=== PATIENT | female | born 1965 | race Caucasian/White ===

== ENCOUNTER → 2020-01-11 10:31 | Outpatient (CLI) | payer BC, SELFPAY ==
--- NOTE | 2020-01-11 10:50 | RAD_ITS ---
STUDY: X-RAY CHEST REASON FOR EXAM: Female, 54 years old. inflammatory polyarthropathy, Hx of breast CA, bilateral mastectomy TECHNIQUE: PA and lateral views of the chest. COMPARISON: None. FINDINGS: Status post left axillary lymph node dissection. The lungs are clear and expanded. There is no demonstrated pleural abnormality. Normal size heart. Normal mediastinum and raul. Normal visualized pulmonary arteries. Normal visualized aortic arch and descending thoracic aorta. Normal visualized thoracic spine. Normal visualized ribs, clavicles, and shoulders. There is no demonstrated abnormality of the visualized soft tissue structures of the upper abdomen. RAD/Chest PA and Lateral IMPRESSION: Normal x-ray examination of the chest. Electronically Signed: Ilia Shukla MD at 7:44 EDT Tel , Service support ,
[2020-01-11 11:49] LABS: EXAGEN MAILED SPECIMEN
[2020-01-11 12:52] LABS: Partial Thromboplast Time 23.4 Seconds (24.1-36.2); Prothrombin Time (Protime)PT. 12.2 SECONDS (11.7-14.9)
[2020-01-11 12:56] LABS: Color, Urine Yellow (Yellow); Glucose, Dipstick Normal (Normal); Ketone-Dipstick 5 mg/dl (Negative); Leukocyte Esterase-Dipstick 100 /ul (Negative); Nitrite-Dipstick Negative (Negative); Occult Blood-Urine 250 /ul (Negative); Protein-Dipstick 30 mg/dl (Negative); Specific Gravity, Urine 1.015 (1.002-1.030); Urine Bilirubin Dipstick Negative (Negative); Urine Clarity Sl. Cloudy (Clear); Urine Urobilinogen Normal (Normal); Urine pH 6.5 (5.0 - 8.0)
[2020-01-11 13:03] LABS: Absolute Lymphocyte Count 2.28 X10^3/uL (0.83-4.51); Absolute Neutrophil Count 5.7 X10^3/uL (2.0-7.7); Basophil# 0.07 X10^3/uL; Basophil% 0.8 % (0-1); Eosinophil# 0.15 X10^3/uL; Eosinophils% 1.7 % (0-5); Hematocrit 43.6 % (37-47); Hemoglobin 13.7 g/dL (12.0-15.0); Lymphocyte # 2.28 X10^3/ul (4.0); Lymphocyte % 25.6 % (19-41); Mean Corp Hgb Conc 31.4 g/dL (32-36); Mean Corpuscular Hgb 31.4 pg (27.0-32.0); Mean Corpuscular Volume 99.8 fL (81-99); Mean Platelet Vol. 10.3 fl (6.2-12.0); Monocyte# 0.65 X10^3/uL; Monocyte% 7.3 % (0-10); NRBC Flagged by Analyzer 0 % (0-5); Neutrophil # 5.73 X10^3/uL (2.7-7.7); Neutrophil % 64.3 % (47-70); Platelet Count 277 K/mm3 (150-450); RBC Distribution Width CV 12.8 % (11.6-14.6); RBC Distribution Width SD 46.5 fl (35.1-43.9); Red Blood Count 4.37 M/mm3 (4.2-5.4); White Blood Count 8.9 K/mm3 (4.4-11.0)
[2020-01-11 13:07] LABS: Protein, Urine (Random) 43.3 mg/dL (<11.9); Protein:Creat Ratio 341 mg/g CRE (0-200)
[2020-01-11 13:20] LABS: Erythrocyte Sedimentation Rate 7 mm/hr (0-30)
[2020-01-11 13:23] LABS: ALB/GLOB Ratio 1.1 RATIO (0.9-2.4); AST(SGOT) 15 U/L (15-37); Alanine Aminotransfer ALT/SGPT 23 U/L (13-56); Alkaline Phosphatase 52 U/L (45-117); Anion Gap 8 (5-15); BUN 15 mg/dL (7-18); BUN/Creat Ratio 25.1 RATIO (10-20); CPK Total, Creatine Kinase 27 U/L (26-192); CRP < 2.90 mg/L (0.0-3.0); Calcium,Total 9.1 mg/dL (8.5-10.1); Chloride 101 mmol/L (98-107); EST Glomerular Filtration Rate 111 mL/min (>60); Est Glom Filt Rate - Afr Amer 134 mL/min (>60); Globulin 3.7 g/dL (2.2-4.2); Glucose 78 mg/dL (74-106); Potassium 2.9 mmol/L (3.5-5.1); Protein, Total 7.7 g/dL (6.4-8.2); Sodium Level 139 mmol/L (136-145)
[2020-01-11 13:45] LABS: Hepatitis B Surface Antibody Non-Reactive; Hepatitis B Surface Antigen Non-Reactive (Nonreactive); Hepatitis C Antibody Non-Reactive (Nonreactive)
[2020-01-15 00:36] LABS: Thrombin Time 19.5 sec (0.0-23.0)
[2020-01-15 20:07] LABS: Dilute Prothrombin Time (dPT) 35.5 sec (0.0-55.0); Hexagonal Phase Phospholipid 0 sec (0-11); PTT-LA 30.2 sec (0.0-51.9); QNTFERON TB Mitogen Value > 10.00 IU/mL (.); QNTFERON TB Nil Value 0.23 IU/mL (.); QNTFERON TB1+ Ag Value 0.37 IU/mL (.); Thrombin Time 19.7 sec (0.0-23.0); dPT Confirm Ratio 0.98 Ratio (0.00-1.40)
[2020-01-15 20:31] LABS: Hepatitis B Core AB IgM Negative (Negative); Interpretation Comment: (.); QNTIFERON TB Positive Criteria Negative (Negative)
== END ==
PROVIDERS: Referring Provider Internal Medicine Rheumatology; Visit Provider Internal Medicine Rheumatology
DX: M06.4 Inflammatory polyarthropathy (principal); R76.8 Other specified abnormal immunological findings in serum; M79.7 Fibromyalgia; K76.0 Fatty (change of) liver, not elsewhere classified; K58.9 Irritable bowel syndrome, unspecified; Z85.3 Personal history of malignant neoplasm of breast
CPT/HCPCS: 36415; 71046; 80053; 81002; 82085; 82550; 82570; 84156; 85025; 85598; 85610; 85652; 85670; 85730; 86140; 86480; 86705; 86706; 86803; 87340

== ENCOUNTER 2020-01-12 10:12 | Emergency (ER) | payer BC, SELFPAY ==
[2020-01-12 10:13] VITALS: BP 100/53; PULSE 81; RESP 16; TEMP 36.2; O2SAT 98; BMI 27.6
--- NOTE | 2020-01-12 10:22 | EKG12_ITS ---
Test Reason : ABNL LABS Blood Pressure : / mmHG Vent. Rate : 074 BPM Atrial Rate : 074 BPM P-R Int : 162 ms QRS Dur : 080 ms QT Int : 424 ms P-R-T Axes : 050 038 081 degrees QTc Int : 470 ms Normal sinus rhythm Possible Left atrial enlargement Nonspecific ST and T wave abnormality Abnormal ECG Confirmed by GILMAR PETTY, BINTA ([id number]), editor in chief newspaper JERALD MAYFIELD ([id number]) on 01/14/2020 1:05:22 PM Referred By: EDITH Confirmed By:BINTA SCHAFER MD
[2020-01-12 11:01] LABS: Anion Gap 5 (5-15); BUN 17 mg/dL (7-18); BUN/Creat Ratio 26.8 RATIO (10-20); Calcium,Total 8.8 mg/dL (8.5-10.1); Chloride 107 mmol/L (98-107); Creatinine, Serum 0.63 mg/dL (0.55-1.02); EST Glomerular Filtration Rate 104 mL/min (>60); Est Glom Filt Rate - Afr Amer 125 mL/min (>60); Estimated Creatinine Clearance 77.03 ml/min; Glucose 90 mg/dL (74-106); Magnesium 1.9 mg/dL (1.6-2.6); Potassium 3.3 mmol/L (3.5-5.1); Sodium Level 142 mmol/L (136-145)
--- NOTE | 2020-01-12 11:22 | ED.DCSUM_ITS ---
- ER Visit Summary Date of Service: 01/12/20 Chief Complaint: Low potassium History of Present Illness: The patient is a [address] South and Dr. Chance. Patient reports that she had blood work drawn yesterday and was told to leave and come to the emerge department because her potassium was low. States that her prior to coming in that she a lot of high potassium foods. Physical Examination: Vitals: Stable. Afebrile. General: Well-nourished and well-developed. Head: Normocephalic atraumatic. Neck: Supple, no lymphadenopathy. No JVD. Nontender. Cardiovascular: Regular rate and rhythm. No murmurs. Respiratory: No respiratory distress. Clear to auscultation bilaterally. Abdominal: Soft, nontender, nondistended, normal bowel sounds. No guarding, rebound, or peritoneal signs. Back: Nontender. Extremities: Nontender, no edema. Skin: Normal color, no rash. Neurologic: Alert and oriented ?3. Cranial nerves II through XII are intact. Normal strength and sensation. Psych: Normal affect. Test Results: Chem-7 shows a potassium of 3.3. Her potassium was 2.9 yesterday. Magnesium is 1.9. EKG is sinus at [address] changes. Her QTC is 470. Emergency Department Course and Treatment: Patient is resting comfortably. Treatment Plan: I had a prolonged discussion with the patient about the hypokalemia. She is on hydrochlorothiazide, but she reports that she has been on this for quite some time is never had problems with this before. She would prefer to do this with diet. However, she will be given a prescription for potassium. Instructed to follow-up with her primary care physician this week for repeat potassium and discussion about whether or not to continue the hydrochlorothiazide. Return to the emergency department for any worsening symptoms. Disposition: To home in improved and stable condition. Impression: 1. Hypokalemia. This note was generated with [employer]ation software. It may contain incorrect words, spelling, and punctuation that were not noted in review of the chart prior to signing ED Disposition - Plan for ED Patient: Instructions: ED Potassium-Rich Foods Prescriptions: Potassium Chloride [K-Dur] 40 meq PO DAILY #10 tablet Referrals: Yanet Chance MD [STAFF PHYSICIAN] - 1 Week
== END 2020-01-12 11:45 | disposition home or self-care (01) ==
LOC: ED 11:32
PROVIDERS: Emergency Provider Emergency Medicine; PCP Internal Medicine
DX: E87.6 Hypokalemia (principal); I10 Essential (primary) hypertension; E78.00 Pure hypercholesterolemia, unspecified; M79.7 Fibromyalgia; M32.9 Systemic lupus erythematosus, unspecified
CPT/HCPCS: 80048; 83735; 93005; 99282; A4216

== ENCOUNTER → 2020-05-19 15:17 | Outpatient (CLI) | payer BC, SELFPAY ==
[2020-05-19 18:35] LABS: Absolute Lymphocyte Count 1.75 X10^3/uL (0.83-4.51); Absolute Neutrophil Count 2.5 X10^3/uL (2.0-7.7); Basophil# 0.05 X10^3/uL; Eosinophil# 0.12 X10^3/uL; Eosinophils% 2.3 % (0-5); Hematocrit 39.2 % (37-47); Hemoglobin 12.2 g/dL (12.0-15.0); Lymphocyte # 1.75 X10^3/ul (4.0); Lymphocyte % 33.5 % (19-41); Mean Corp Hgb Conc 31.1 g/dL (32-36); Mean Corpuscular Hgb 28.5 pg (27.0-32.0); Mean Corpuscular Volume 91.6 fL (81-99); Mean Platelet Vol. 11.7 fl (6.2-12.0); Monocyte# 0.79 X10^3/uL; Monocyte% 15.1 % (0-10); NRBC Flagged by Analyzer 0 % (0-5); Neutrophil # 2.51 X10^3/uL (2.7-7.7); Neutrophil % 47.9 % (47-70); Platelet Count 273 K/mm3 (150-450); RBC Distribution Width CV 12.4 % (11.6-14.6); RBC Distribution Width SD 41.4 fl (35.1-43.9); Red Blood Count 4.28 M/mm3 (4.2-5.4); White Blood Count 5.2 K/mm3 (4.4-11.0)
[2020-05-19 18:46] LABS: ALB/GLOB Ratio 1.1 RATIO (0.9-2.4); AST(SGOT) 25 U/L (15-37); Alanine Aminotransfer ALT/SGPT 31 U/L (13-56); Alkaline Phosphatase 54 U/L (45-117); Anion Gap 7 (5-15); BUN 10 mg/dL (7-18); Calcium,Total 9.5 mg/dL (8.5-10.1); Chloride 105 mmol/L (98-107); Creatinine, Serum 0.71 mg/dL (0.55-1.02); EST Glomerular Filtration Rate 90 mL/min (>60); Est Glom Filt Rate - Afr Amer 109 mL/min (>60); Globulin 3.6 g/dL (2.2-4.2); Glucose 77 mg/dL (74-106); Potassium 3.1 mmol/L (3.5-5.1); Protein, Total 7.6 g/dL (6.4-8.2); Sodium Level 142 mmol/L (136-145)
[2020-05-19 18:52] LABS: Color, Urine Yellow (Yellow); Glucose, Dipstick Normal (Normal); Ketone-Dipstick Negative (Negative); Leukocyte Esterase-Dipstick Negative /ul (Negative); Nitrite-Dipstick Negative (Negative); Occult Blood-Urine 10 /ul (Negative); Protein-Dipstick Negative (Negative); Specific Gravity, Urine 1.005 (1.002-1.030); Urine Bilirubin Dipstick Negative (Negative); Urine Clarity Clear (Clear); Urine Urobilinogen Normal (Normal)
[2020-05-19 19:03] LABS: Creatinine, Urine (random) < 13.00 mg/dL (NO RANGE EST.); Protein, Urine (Random) < 6.0 mg/dL (<11.9)
== END ==
PROVIDERS: PCP Internal Medicine; Referring Provider Internal Medicine Rheumatology; Visit Provider Internal Medicine Rheumatology
DX: M06.4 Inflammatory polyarthropathy (principal); Z79.899 Other long term (current) drug therapy; R76.8 Other specified abnormal immunological findings in serum; M79.7 Fibromyalgia; K76.0 Fatty (change of) liver, not elsewhere classified; K58.9 Irritable bowel syndrome, unspecified; Z85.3 Personal history of malignant neoplasm of breast
CPT/HCPCS: 36415; 80053; 81002; 82570; 84156; 85025

== ENCOUNTER 2020-09-16 12:52 | Emergency (ER) | payer BC, SELFPAY ==
[2020-09-16] VITALS (7 sets, daily range): BP systolic 126–174; BP diastolic 70–118; PULSE 71–85; RESP 11–16; TEMP 36.9; O2SAT 98–100; BMI 24.9
[2020-09-16] MEDS: 0.9% Normal Saline 1,000 ML 999 ML IV (12:54)
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
[2020-09-16 13:10] LABS: Absolute Lymphocyte Count 1.33 X10^3/uL (0.83-4.51); Absolute Neutrophil Count 2.4 X10^3/uL (2.0-7.7); Basophil# 0.02 X10^3/uL; Basophil% 0.5 % (0-1); Eosinophil# 0.06 X10^3/uL; Eosinophils% 1.4 % (0-5); Hematocrit 38.2 % (37-47); Hemoglobin 12.4 g/dL (12.0-15.0); Lymphocyte # 1.33 X10^3/ul (4.0); Mean Corp Hgb Conc 32.5 g/dL (32-36); Mean Corpuscular Hgb 29.5 pg (27.0-32.0); Mean Platelet Vol. 9.8 fl (6.2-12.0); Monocyte# 0.56 X10^3/uL; Monocyte% 12.6 % (0-10); NRBC Flagged by Analyzer 0 % (0-5); Neutrophil # 2.44 X10^3/uL (2.7-7.7); Platelet Count 247 K/mm3 (150-450); RBC Distribution Width CV 12.9 % (11.6-14.6); RBC Distribution Width SD 42.5 fl (35.1-43.9); White Blood Count 4.4 K/mm3 (4.4-11.0)
[2020-09-16] MEDS: Morphine 4 MG/ML Syringe IV (13:15)
[2020-09-16] MEDS: Ondansetron 4 MG/2 ML Vial IV (13:15)
[2020-09-16 13:21] LABS: Bedside Glucose 146 mg/dL (70-110)
[2020-09-16 13:23] LABS: Anion Gap 7 (5-15); BUN 14 mg/dL (7-18); BUN/Creat Ratio 18.3 RATIO (10-20); Calcium,Total 9.5 mg/dL (8.5-10.1); Chloride 105 mmol/L (98-107); Creatinine, Serum 0.77 mg/dL (0.55-1.02); EST Glomerular Filtration Rate 83 mL/min (>60); Est Glom Filt Rate - Afr Amer 100 mL/min (>60); Estimated Creatinine Clearance 80.28 ml/min; Glucose 114 mg/dL (74-106); Potassium 3.7 mmol/L (3.5-5.1); Sodium Level 140 mmol/L (136-145)
== END 2020-09-16 15:24 | disposition home or self-care (01) ==
LOC: ED 14:21
PROVIDERS: Emergency Provider Emergency Medicine; PCP Internal Medicine
DX: S06.0X1A Concussion with loss of consciousness of 30 minutes or less, initial encounter (principal); S16.1XXA Strain of muscle, fascia and tendon at neck level, initial encounter; S20.219A Contusion of unspecified front wall of thorax, initial encounter; S30.1XXA Contusion of abdominal wall, initial encounter; V43.62XA Car passenger injured in collision with other type car in traffic accident, initial encounter; Y92.410 Unspecified street and highway as the place of occurrence of the external cause; M32.9 Systemic lupus erythematosus, unspecified; K76.0 Fatty (change of) liver, not elsewhere classified; K57.30 Diverticulosis of large intestine without perforation or abscess without bleeding; K44.9 Diaphragmatic hernia without obstruction or gangrene; Z90.49 Acquired absence of other specified parts of digestive tract; Z87.891 Personal history of nicotine dependence
CPT/HCPCS: 70450; 72125; 74177; 80048; 82962; 85025; 93005; 96361; 96374; 96375; 99285; J7030; Q9967; A4216; J2405

== ENCOUNTER → 2020-11-10 12:21 | Outpatient (CLI) | payer BC, SELFPAY ==
[2020-09-16 12:54] VITALS: BMI 24.9
[2020-11-10 15:08] LABS: Color, Urine Amber (Yellow); Glucose, Dipstick Normal (Normal); Ketone-Dipstick Negative (Negative); Leukocyte Esterase-Dipstick 25 /ul (Negative); Nitrite-Dipstick Negative (Negative); Occult Blood-Urine 150 /ul (Negative); Protein-Dipstick Negative (Negative); Specific Gravity, Urine 1.015 (1.002-1.030); Urine Bilirubin Dipstick Negative (Negative); Urine Clarity Sl. Cloudy (Clear); Urine Urobilinogen Normal (Normal)
[2020-11-10 15:09] LABS: Absolute Lymphocyte Count 1.24 X10^3/uL (0.83-4.51); Absolute Neutrophil Count 4.7 X10^3/uL (2.0-7.7); Basophil# 0.03 X10^3/uL; Basophil% 0.4 % (0-1); Eosinophil# 0.07 X10^3/uL; Hematocrit 36.2 % (37-47); Hemoglobin 11.5 g/dL (12.0-15.0); Lymphocyte # 1.24 X10^3/ul (0.83-4.51); Lymphocyte % 18.4 % (19-41); Mean Corp Hgb Conc 31.8 g/dL (32-36); Mean Corpuscular Hgb 28.6 pg (27.0-32.0); Monocyte# 0.71 X10^3/uL; Monocyte% 10.5 % (0-10); NRBC Flagged by Analyzer 0 % (0-5); Neutrophil # 4.67 X10^3/uL (2.7-7.7); Neutrophil % 69.4 % (47-70); Platelet Count 286 K/mm3 (150-450); RBC Distribution Width CV 12.5 % (11.6-14.6); RBC Distribution Width SD 41.1 fl (35.1-43.9); Red Blood Count 4.02 M/mm3 (4.2-5.4); White Blood Count 6.7 K/mm3 (4.4-11.0)
[2020-11-10 15:34] LABS: Protein, Urine (Random) < 6.0 mg/dL (<11.9)
[2020-11-10 15:39] LABS: ALB/GLOB Ratio 0.9 RATIO (0.9-2.4); AST(SGOT) 11 U/L (15-37); Alanine Aminotransfer ALT/SGPT 16 U/L (13-56); Albumin, Serum 3.6 g/dL (3.2-5.0); Alkaline Phosphatase 58 U/L (45-117); Anion Gap 4 (5-15); BUN 14 mg/dL (7-18); BUN/Creat Ratio 19.8 RATIO (10-20); Calcium,Total 9.3 mg/dL (8.5-10.1); Chloride 106 mmol/L (98-107); Creatinine, Serum 0.71 mg/dL (0.55-1.02); EST Glomerular Filtration Rate 91 mL/min (>60); Est Glom Filt Rate - Afr Amer 110 mL/min (>60); Globulin 3.9 g/dL (2.2-4.2); Glucose 120 mg/dL (74-106); Potassium 3.7 mmol/L (3.5-5.1); Protein, Total 7.5 g/dL (6.4-8.2); Sodium Level 140 mmol/L (136-145)
== END ==
PROVIDERS: PCP Internal Medicine; Referring Provider Internal Medicine Rheumatology; Visit Provider Internal Medicine Rheumatology
DX: M06.4 Inflammatory polyarthropathy (principal); R76.8 Other specified abnormal immunological findings in serum; M79.7 Fibromyalgia; K76.0 Fatty (change of) liver, not elsewhere classified; K58.9 Irritable bowel syndrome, unspecified; Z79.899 Other long term (current) drug therapy; Z85.3 Personal history of malignant neoplasm of breast
CPT/HCPCS: 36415; 80053; 81002; 82570; 84156; 85025

== ENCOUNTER → 2020-11-28 17:43 | Emergency (ER) | payer BC, SELFPAY ==
[2020-09-16 12:54] VITALS: BMI 24.9
[2020-11-28 17:43] VITALS: BP 131/87; PULSE 78; RESP 16; TEMP 35.8; O2SAT 98; BMI 26.9
[2020-11-28 17:45] VITALS: BP 131/87; PULSE 78; RESP 16; TEMP 35.8; O2SAT 98
[2020-11-28 19:48] LABS: Bacteria 0 SEEN /hpf (None Seen); Mucous, Urine 0 SEEN /hpf (<or=2+)
[2020-11-28 19:51] LABS: Color, Urine Yellow (Yellow); Glucose, Dipstick Normal (Normal); Ketone-Dipstick Negative (Negative); Leukocyte Esterase-Dipstick 25 /ul (Negative); Nitrite-Dipstick Negative (Negative); Occult Blood-Urine 50 /ul (Negative); Protein-Dipstick 15 mg/dl (Negative); Urine Bilirubin Dipstick Negative (Negative); Urine Clarity Sl. Cloudy (Clear); Urine Urobilinogen Normal (Normal); Urine pH 6.5 (5.0 - 8.0)
[2020-11-28 19:57] LABS: Absolute Lymphocyte Count 1.46 X10^3/uL (0.83-4.51); Absolute Neutrophil Count 6.1 X10^3/uL (2.0-7.7); Basophil# 0.05 X10^3/uL; Basophil% 0.6 % (0-1); Eosinophil# 0.09 X10^3/uL; Eosinophils% 1.1 % (0-5); Hematocrit 38.6 % (37-47); Lymphocyte # 1.46 X10^3/ul (0.83-4.51); Lymphocyte % 17.7 % (19-41); Mean Corp Hgb Conc 33.7 g/dL (32-36); Mean Corpuscular Hgb 29.5 pg (27.0-32.0); Mean Corpuscular Volume 87.7 fL (81-99); Mean Platelet Vol. 11.1 fl (6.2-12.0); Monocyte# 0.57 X10^3/uL; Monocyte% 6.9 % (0-10); NRBC Flagged by Analyzer 0 % (0-5); Neutrophil # 6.07 X10^3/uL (2.7-7.7); Neutrophil % 73.5 % (47-70); Platelet Count 344 K/mm3 (150-450); RBC Distribution Width CV 12.3 % (11.6-14.6); RBC Distribution Width SD 39.3 fl (35.1-43.9); White Blood Count 8.3 K/mm3 (4.4-11.0)
[2020-11-28 19:57] LABS: Red Blood Cells-Urine 0-5 SEEN /hpf (0-5); Squamous Epithelial Cells - UA 0-5 SEEN /hpf (5-10); White Blood Cells 0-5 SEEN /hpf (0-5)
[2020-11-28 20:08] LABS: Anion Gap 7 (5-15); BUN 14 mg/dL (7-18); BUN/Creat Ratio 17.3 RATIO (10-20); Calcium,Total 9.4 mg/dL (8.5-10.1); Chloride 107 mmol/L (98-107); Creatinine, Serum 0.81 mg/dL (0.55-1.02); EST Glomerular Filtration Rate 78 mL/min (>60); Est Glom Filt Rate - Afr Amer 94 mL/min (>60); Estimated Creatinine Clearance 62.07 ml/min; Glucose 92 mg/dL (74-106); Potassium 3.5 mmol/L (3.5-5.1); Sodium Level 142 mmol/L (136-145)
[2020-11-28] MEDS: 0.9% Normal Saline 1,000 ML 1000 ML IV (20:36)
--- NOTE | 2020-11-28 22:04 | CT_ITS ---
STUDY: CT ABDOMEN AND PELVIS WITH CONTRAST REASON FOR EXAM: Female, 55 years old. Abdominal pain -- IV PO Contrast RADIATION DOSAGE (If Supplied By Facility): CTDIvol = ( 13.52 ) mGy, DLP = ( 705.26 ) mGycm TECHNIQUE: Transaxial images were obtained from the dome of the diaphragm to the symphysis pubis without oral contrast. Oral and amp; IV Gastrografin and amp; 100mL Isovue-370 was administered. Sagittal and coronal images were reconstructed. Individualized dose optimization techniques were used for this CT. COMPARISON: None. FINDINGS: The visualized lung bases are unremarkable. The visualized portions of the heart are within normal limits. Normal liver. There are surgical clips in the gallbladder fossa consistent with a prior cholecystectomy. Normal spleen. Normal pancreas. Normal bilateral adrenal glands. Normal right kidney. Normal left kidney. Normal visualized stomach. Normal small intestine. Normal colon. The appendix is visualized and appears normal. Normal abdominal aorta. Normal inferior vena cava. Normal retroperitoneum. Normal urinary bladder. Mild uterine atrophy Normal abdominal wall. Normal osseous structures. CT/Abdomen/Pelvis WITH Contrast IMPRESSION: Normal enhanced CT of the abdomen and pelvis. Electronically Signed: Tre Bass DO at 22:36 EDT Tel , Service support ,
--- NOTE | 2020-11-29 00:43 | EDS_ITS ---
HPI HPI - GI History of Present Illness Chief Complaint: Abd Pain Informant: patient Abdominal Pain/Flank Pain Onset: Days (3) Context: Gradual Onset Timing: Continuous Quality: Sharp and Stabbing Location: RLQ Worsened by: - (Ambulation) Relieved by: Nothing Nausea/Vomiting/Emesis GI Symptom: Positive for Nausea; Negative for Vomiting Diarrhea/Melena/Hematochezia GI Symptom: Negative for Diarrhea Associated Symptoms Associated Symptoms: Negative for Dysuria and Hematuria Narrative Narrative: Patient presents with abdominal pain that has been getting worse over the past 3 days. Patient states it is gradually getting worse. Patient states her pain is worse over her lower abdomen. Patient points to her right lower quadrant and right inguinal area. Patient states her pain is worse whenever she ambulates. Patient describes the pain as sharp and stabbing. Patient states the pain is been constant. Patient admits to some nausea but denies any vomiting. Patient denies any diarrhea, melena, or hematochezia. Patient denies any dysuria or hematuria. Patient states she was told she had a bowel prolapse in the past. When I asked her to describe what she was told, she reported that her bowel had pushed into her vaginal area. Patient was advised that this is a rectocele and not a prolapse. [facility] Medical History Anxiety HTN (hypertension) Hyperlipemia Home Medications alprazolam 0.5 mg PO BID PRN 11/28/20 [History Last Taken Unknown] atorvastatin 20 mg PO DAILY 11/28/20 [History Last Taken Unknown] buspirone 75 mg PO DAILY 11/28/20 [History Last Taken Unknown] carvedilol 12.5 mg PO BID 11/28/20 [History Last Taken Unknown] fenofibrate 135 mg PO DAILY 11/28/20 [History Last Taken Unknown] gabapentin 100 mg PO TID 11/28/20 [History Last Taken Unknown] ropinirole 1 mg PO DAILY 11/28/20 [History Last Taken Unknown] tramadol 150 mg PO TID 11/28/20 [History Last Taken Unknown] Allergy/AdvReac Type Severity Reaction Status Date / Time No Known Allergies Allergy Verified 09/16/20 13:00 Surgical History (Updated 11/29/20 @ 00:[address] Yves Schwiger, DO) History of bilateral mastectomy History of cholecystectomy History of tubal ligation Status post ORIF of fracture of ankle Social History Smoking Status: Former smoker ROS ROS ED Constitutional Constitutional ED: Denies chills or fever(s) Eyes Eyes: Denies blurry vision or change in vision ENT ENT ED: Denies rhinorrhea or sore throat Cardiovascular Cardiovascular: Denies chest pain or palpitations Respiratory/Chest Respiratory/Chest: Denies cough or dyspnea Gastrointestinal Gastrointestinal: Reports abdominal pain and nausea; Denies diarrhea or vomiting Genitourinary Genitourinary ED: Denies dysuria or hematuria Musculoskeletal Musculoskeletal: Reports back pain; Denies neck pain Integumentary Denies abscess or rash Neurologic Neurologic: Denies headache(s) or weakness Allergic/Immunologic Allergic/Immunologic ED: Denies mouth swelling or urticaria EXAM Physical Exam Const Vital Signs: 11/28/20 17:43 11/28/20 17:45 Temperature 96.5 F L 96.5 F L Temperature Source Temporal Temporal Pulse Rate 78 78 Respiratory Rate 16 16 Blood Pressure 131/87 H 131/87 H Blood Pressure Mean 101 101 Pulse Ox 98 98 Oxygen Delivery Method Room Air Room Air Positive well nourished and well developed General Appearance ED: well developed HEENT Reports moist mucous membranes normocephalic Neck supple and no JVD Resp normal respiratory effort and clear to auscultation bilaterally Cardio regular rate and regular rhythm GI non-distended Auscultation: normoactive bowel sounds Palpation: soft and tender RLQ; Negative for guarding or rebound tenderness present Extremity General Extremety ED: Negative for edema or tenderness General Extremity: Negative for edema Neuro CN's II-XII intact bilaterally, moves all extremities and no sensory deficits noted Sensorium / Orientation: alert, oriented to person, oriented to place and oriented to time Psych mental status grossly normal MDM MDM MDM Narrative Medical decision making narrative: Patient was given IV fluids. CBC and basic metabolic profile were essentially within normal limits. Urinalysis does not show any evidence of urinary tract infection. CT scan of the abdomen and pelvis with oral and IV contrast was obtained. There is no acute intra-abdominal abnormality. The appendix was visualized and was normal. There is no evidence of rectocele or rectal prolapse. This was interpreted by the radiologist and reviewed by myself. Patient was advised of her results. Patient was given referral to [facility] for further evaluation of her rectocele. Patient was instructed to follow-up with her primary care physician in 5 to 7 days. Patient understood and was agreeable with the plan. All questions were answered. Lab Data Attestation: I reviewed the patient's lab results. Labs: Laboratory Results - last 24 hr 11/28/20 11/28/20 11/28/20 19:23 19:23 19:34 WBC 8.3 RBC 4.40 Hgb 13.0 Hct 38.6 MCV 87.7 MCH 29.5 MCHC 33.7 RDW Std Deviation 39.3 RDW Coeff of Citlaly 12.3 Plt Count 344 MPV 11.1 Immature Gran % (Auto) 0.200 Neut % (Auto) 73.5 H Lymph % (Auto) 17.7 L Walker % (Auto) 6.9 Eos % (Auto) 1.1 Baso % (Auto) 0.6 Absolute Neuts (auto) 6.1 Absolute Lymphs (auto) 1.46 Nucleated RBC % 0 Sodium 142 Potassium 3.5 Chloride 107 Carbon Dioxide 28.0 Anion Gap 7 BUN 14 Creatinine 0.81 Estim Creat Clear Calc 62.07 Est GFR (MDRD) Af Amer 94 Est GFR (MDRD) Non-Af 78 BUN/Creatinine Ratio 17.3 Glucose 92 Calcium 9.4 Urine Color Yellow Urine Clarity Sl. Cloudy Urine pH 6.5 Ur Specific Morrow 1.010 Urine Protein 15 H Urine Glucose (UA) Normal Urine Ketones Negative Urine Occult Blood 50 H Urine Nitrite Negative Urine Bilirubin Negative Urine Urobilinogen Normal Ur Leukocyte Esterase 25 H Urine RBC 0-5 SEEN Urine WBC 0-5 SEEN Ur Squamous Epith Cells 0-5 SEEN Urine Bacteria 0 SEEN Urine Mucus 0 SEEN Radiography Diagnostic Testing: Radiology Impression Abdomen/Pelvis CT 11/28/20 22:04 IMPRESSION: Normal enhanced CT of the abdomen and pelvis. Electronically Signed: Tre Bass DO at 22:36 EDT Tel , Service support , Discharge Plan Triage Chief Complaint: Abd Pain ED Provider: Yves Killian Dx/Rx/DC Orders Clinical Impression: Abdominal pain in female Instructions: ED Abdominal Pain Unkn Cause Fem Prescriptions: No Action atorvastatin 20 mg Tablet 20 mg PO DAILY RF: 0 carvedilol 12.5 mg Tablet 12.5 mg PO BID RF: 0 ropinirole 1 mg Tablet 1 mg PO DAILY RF: 0 alprazolam 0.5 mg Tablet 0.5 mg PO BID PRN (Reason: Anxiety) RF: 0 buspirone 30 mg Tablet 75 mg PO DAILY RF: 0 gabapentin 100 mg Tablet 100 mg PO TID RF: 0 fenofibrate 150 mg Capsule 135 mg PO DAILY RF: 0 tramadol 150 mg Capsule,Er Biphase 24 Hr 25-75 150 mg PO TID RF: 0 Primary Care Provider: Yanet Chance Referrals: Yanet Chance MD [Primary Care Provider] - 3-5 Days Yoshi Abel MD [STAFF PHYSICIAN] - 1-2 Weeks Disposition Disposition: Home, self care
== END | disposition home or self-care (01) ==
PROVIDERS: Emergency Provider Emergency Medicine; PCP Internal Medicine
DX: R10.9 Unspecified abdominal pain (principal); R11.0 Nausea; F41.9 Anxiety disorder, unspecified; I10 Essential (primary) hypertension; E78.5 Hyperlipidemia, unspecified; Z90.13 Acquired absence of bilateral breasts and nipples; Z90.49 Acquired absence of other specified parts of digestive tract; Z98.51 Tubal ligation status; Z87.891 Personal history of nicotine dependence; Z79.899 Other long term (current) drug therapy
CPT/HCPCS: 74177; 80048; 81001; 85025; 99282; J7030; Q9967; A4216

== ENCOUNTER 2021-06-23 15:07 | Emergency (ER) | payer BC, SELFPAY ==
[2021-06-23 15:08] VITALS: BP 129/81; PULSE 77; RESP 18; TEMP 36.2; O2SAT 100; BMI 27.1
[2021-06-23 16:28] VITALS: BP 138/73; PULSE 74; RESP 16; O2SAT 99
--- NOTE | 2021-06-23 16:37 | ED.VIS.LOWEX ---
HPI History of Present Illness Chief Complaint: Lower Extremity Injury Informant: patient Onset/Context/Timing Onset: Weeks Context: Gradual Onset Timing: Continuous Quality of Pain: Sharp Current Severity: Mild Maximum Severity: Mild Associated Symptoms Associated Symptoms: Negative for Parasthesia, Weakness and Loss of Funtion Narrative Narrative: 36 female history of breast cancer 2 years ago, lupus and arthritis. States she has had left knee pain for last 2 weeks. Worse with walking. Denies any swelling, redness or fever. No falls or trauma. States that when she has had her lupus flares in the past or her arthritis is primarily in her elbows. She is not had knee problems or knee surgery in the past. Prior similar symptoms: No Recent Illness/Hospitalization: No PFSH PFSH Medical History Anxiety Breast cancer HTN (hypertension) Hyperlipemia MCTD (mixed connective tissue disease) Home Medications alprazolam 0.5 mg PO BID PRN 11/28/20 [History Last Taken Unknown] atorvastatin 20 mg PO DAILY 11/28/20 [History Last Taken Unknown] buspirone 75 mg PO DAILY 11/28/20 [History Last Taken Unknown] carvedilol 12.5 mg PO BID 11/28/20 [History Last Taken Unknown] fenofibrate 135 mg PO DAILY 11/28/20 [History Last Taken Unknown] gabapentin 100 mg PO TID 11/28/20 [History Last Taken Unknown] ropinirole 1 mg PO DAILY 11/28/20 [History Last Taken Unknown] tramadol 150 mg PO TID 11/28/20 [History Last Taken Unknown] hydrocodone-acetaminophen 1 tab PO Q4H PRN 5 Days #10 tab 06/23/21 [Rx Last Taken Unknown] hydroxychloroquine PO 06/23/21 [History Last Taken Unknown] lisinopril-hydrochlorothiazide tab 06/23/21 [History Last Taken Unknown] Allergy/AdvReac Type Severity Reaction Status Date / Time No Known Allergies Allergy Verified 06/23/21 15:10 Surgical History History of bilateral mastectomy History of cholecystectomy History of tubal ligation Status post ORIF of fracture of ankle Social History Smoking Status: Former smoker ROS ROS ED ROS Narrative Atraumatic left knee pain Review of Systems ROS Unobtainable: Denies due to encephalopathy Constitutional Constitutional ED: Denies fever(s) Eyes Eyes: Denies change in vision ENT ENT ED: Denies ear pain Cardiovascular Cardiovascular: Denies chest pain Respiratory/Chest Respiratory/Chest: Denies dyspnea Gastrointestinal Gastrointestinal: Denies abdominal pain, diarrhea, nausea or vomiting Genitourinary Genitourinary ED: Denies dysuria Musculoskeletal Musculoskeletal: Reports arthralgias; Denies myalgias Integumentary Denies rash Neurologic Neurologic: Denies headache(s) Psychiatric Psychiatric: Denies depression Endocrine Endocrinology: Denies polyuria Hematologic/Lymphatic Hematologic/Lymphatic: Denies easy bruising Allergic/Immunologic Allergic/Immunologic ED: Denies urticaria EXAM Physical Exam Narrative Exam Narrative: 56-year-old female no acute distress. Vital signs stable afebrile. HEENT exam unremarkable. Lungs are clear. Heart regular rhythm no murmur. Abdomen soft nontender. Left knee unremarkable exam. Minimal tenderness medially. Ligaments intact. Full flexion. Full extension. No effusion. No redness or septic joint. Left foot dorsi plantarflexion intact. Normal motor strength and sensation. Otherwise exam unremarkable. Const Vital Signs: 06/23/21 15:08 06/23/21 16:28 Temperature 97.2 F L Temperature Source Temporal Pulse Rate 77 74 Respiratory Rate 18 16 Blood Pressure 129/81 H 138/73 H Blood Pressure Mean 97 94 Pulse Ox 100 99 Oxygen Delivery Method Room Air Room Air Positive well nourished and well developed; Negative for cachectic, contractures or unkempt General Appearance ED: well developed and NAD; Negative for unkempt, cachectic or contractures Nutritional Appearance: Negative for cachectic HEENT Reports moist mucous membranes normocephalic and atraumatic; Negative for trauma or tenderness Eyes PERRL Neck full ROM and supple Thyroid: Negative for tender Chest Wall inspection of chest normal and palpation of chest normal Resp normal respiratory effort, no retractions and clear to auscultation bilaterally Auscultation: Negative for rales, rhonchi or wheezes Cardio regular rate, regular rhythm, S1 normal heart sound, S2 normal heart sound and no murmurs GI non-tender, non-distended and no masses Inspection: Negative for abdominal distention Auscultation: normoactive bowel sounds Palpation: soft and tender; Negative for guarding or rebound tenderness present Back/Spine no CVA tenderness General Back: Negative for CVA tenderness Cervical Spine: Negative for cervical spine tenderness Extremity normal to inspection and full ROM General Extremety ED: Negative for cyanosis, edema or weight-bearing difficulty General Extremity: Negative for cyanosis, edema or weight-bearing difficulty Neuro oriented x3, CN's II-XII intact bilaterally and moves all extremities Sensorium / Orientation: alert, oriented to person, oriented to place and oriented to time; Negative for orientation impaired, confused, lethargic or stuporous Motor Exam: strength 5/5 throughout Psych mental status grossly normal Appearance: Negative for unkempt Speech: No other Mood & Affect: Negative for anxious Skin no wounds Lesions: no lesions Rashes: no rashes Trauma: Negative for abrasion or laceration MDM MDM MDM Narrative Medical decision making narrative: Patient with atraumatic left knee pain. This is most likely either wear and tear degenerative arthritis versus her rheumatoid arthritis versus her lupus. The knee itself is unremarkable exam except for minimal medial left knee tenderness. There is no effusion. There is no signs of a septic joint. It is not hot, red or swollen. Repeat exam unchanged at 5:10 PM. She will be discharged home. She was written for 10 [place]oro for pain. Otherwise Motrin and ice. She will follow up with a mechanical service technician when she can. Radiography Diagnostic Testing: Left knee x-ray interpreted by myself shows mild joint space narrowing on the medial aspect of the left knee. Otherwise no acute abnormality. I did go over the films with the patient. This could be from normal wear and tear. Discharge Plan Triage Chief Complaint: Lower Extremity Injury ED Provider: Ronen Peters Dx/Rx/DC Orders Clinical Impression: History of lupus, Left knee pain Instructions: Knee Pain Prescriptions: New hydrocodone-acetaminophen 5-325 mg tablet 1 tab PO Q4H PRN (Reason: pain) 5 Days Qty: 10 RF: 0 No Action atorvastatin 20 mg Tablet 20 mg PO DAILY RF: 0 carvedilol 12.5 mg Tablet 12.5 mg PO BID RF: 0 ropinirole 1 mg Tablet 1 mg PO DAILY RF: 0 alprazolam 0.5 mg Tablet 0.5 mg PO BID PRN (Reason: Anxiety) RF: 0 buspirone 30 mg Tablet 75 mg PO DAILY RF: 0 gabapentin 100 mg Tablet 100 mg PO TID RF: 0 fenofibrate 150 mg Capsule 135 mg PO DAILY RF: 0 tramadol 150 mg Capsule,Er Biphase 24 Hr 25-75 150 mg PO TID RF: 0 lisinopril-hydrochlorothiazide 20-12.5 mg tablet RF: 0 hydroxychloroquine 200 mg tablet PO RF: 0 Primary Care Provider: Yanet Chance Referrals: Yanet Chance MD [Primary Care Provider] - 1 Week if not improving Activity Restrictions/Additional Instructions: Ice and elevate your left knee, rest and Motrin to decrease pain and inflammation. Tylenol also help with the pain but will do nothing for inflammation. Limited [place]oro for pain. Do not drink or drive while using the [place]oro. Plenty of fluids and fiber to prevent constipation. Follow-up with your mechanical service technician if not improving. Disposition Disposition: Home, Self Care
--- NOTE | 2021-06-23 16:56 | RAD_ITS ---
STUDY: X-RAY - LEFT KNEE REASON FOR EXAM: Female, 56 years old. atraumatic pain TECHNIQUE: 4 view(s) of the knee. COMPARISON: None. FINDINGS: Normal visualized distal femur. Normal visualized proximal tibia and fibula. Normal proximal tibiofibular articulation. There is no demonstrated fracture. Normal medial femorotibial compartment. Normal lateral femorotibial compartment. Normal patellofemoral articulation. There is no demonstrated joint effusion. The soft tissue structures are unremarkable. RAD/Knee 4 or More Views IMPRESSION: Normal x-ray examination of the knee. Electronically Signed: Mike Raman MD at 18:12 EST , Service support ,
[2021-06-23 17:19] VITALS: BP 132/74; PULSE 81; RESP 15; O2SAT 98
== END 2021-06-23 17:20 | disposition home or self-care (01) ==
PROVIDERS: Emergency Provider Emergency Medicine; PCP Internal Medicine
DX: M25.562 Pain in left knee (principal); Z87.891 Personal history of nicotine dependence; E78.5 Hyperlipidemia, unspecified; F41.9 Anxiety disorder, unspecified; I10 Essential (primary) hypertension; M32.9 Systemic lupus erythematosus, unspecified; M19.90 Unspecified osteoarthritis, unspecified site; Z85.3 Personal history of malignant neoplasm of breast
CPT/HCPCS: 73564; 99282

== ENCOUNTER → 2021-10-24 | Outpatient (CLI) | payer BC, SELFPAY ==
[2021-10-24 08:04] LABS: Absolute Lymphocyte Count 1.71 X10^3/uL (0.83-4.51); Absolute Neutrophil Count 3.2 X10^3/uL (2.0-7.7); Basophil# 0.02 X10^3/uL; Basophil% 0.4 % (0-1); Eosinophil# 0.14 X10^3/uL; Eosinophils% 2.6 % (0-5); Hematocrit 37.7 % (37-47); Hemoglobin 12.3 g/dL (12.0-15.0); Lymphocyte # 1.71 X10^3/ul (0.83-4.51); Lymphocyte % 31.1 % (19-41); Mean Corp Hgb Conc 32.6 g/dL (32-36); Mean Corpuscular Hgb 29.4 pg (27.0-32.0); Mean Platelet Vol. 10.3 fl (6.2-12.0); Monocyte# 0.46 X10^3/uL; Monocyte% 8.4 % (0-10); NRBC Flagged by Analyzer 0 % (0-5); Neutrophil # 3.15 X10^3/uL (2.7-7.7); Neutrophil % 57.3 % (47-70); Platelet Count 248 K/mm3 (150-450); RBC Distribution Width CV 12.4 % (11.6-14.6); RBC Distribution Width SD 40.2 fl (35.1-43.9); Red Blood Count 4.19 M/mm3 (4.2-5.4); White Blood Count 5.5 K/mm3 (4.4-11.0)
[2021-10-24 08:14] LABS: Amphetamine Urine VISTA NEGATIVE (<1000 ng/mL); Barbiturate Urine VISTA NEGATIVE (< 200 ng/mL); Benzodiazepine Urine VISTA POSITIVE (< 200 ng/mL); Cocaine Urine VISTA NEGATIVE (< 300 ng/mL); Ecstacy Urine VISTA POSITIVE (< 500 ng/mL); Methadone Urine VISTA NEGATIVE (< 300 ng/mL); PCP Urine VISTA NEGATIVE (< 25 ng/mL); THC Urine VISTA NEGATIVE (< 50 ng/mL); Vista UDS pH Range 5
[2021-10-24 08:31] LABS: ALB/GLOB Ratio 0.9 RATIO (0.9-2.4); AST(SGOT) 23 U/L (15-37); Alanine Aminotransfer ALT/SGPT 40 U/L (13-56); Albumin, Serum 3.5 g/dL (3.2-5.0); Alkaline Phosphatase 109 U/L (45-117); Anion Gap 6 (5-15); BUN 11 mg/dL (7-18); BUN/Creat Ratio 14.7 RATIO (10-20); Calcium,Total 9.2 mg/dL (8.5-10.1); Chloride 106 mmol/L (98-107); Cholesterol 355 mg/dL (200); Creatinine, Serum 0.75 mg/dL (0.55-1.02); EST Glomerular Filtration Rate 85 mL/min (>60); Est Glom Filt Rate - Afr Amer 103 mL/min (>60); Globulin 3.9 g/dL (2.2-4.2); Glucose 98 mg/dL (74-106); High Density Lipoprotein 66 mg/dL; Potassium 3.6 mmol/L (3.5-5.1); Protein, Total 7.4 g/dL (6.4-8.2); Sodium Level 138 mmol/L (136-145); T4 Total, Thyroxin 8.1 ug/dL (4.8-13.9); Thyroid Stim Hormone (TSH) 0.91 uIU/mL (0.358-3.74); Triglycerides 277 mg/dL; Very Low Density Lipoprotein 55 mg/dL (5-40)
[2021-10-26 07:54] LABS: T3 Total - Triiodothyronine 1.21 ng/mL (0.6-1.81)
== END | disposition home or self-care (01) ==
LOC: LAB 07:25
PROVIDERS: PCP Internal Medicine
DX: F41.1 Generalized anxiety disorder (principal); F19.19 Other psychoactive substance abuse with unspecified psychoactive substance-induced disorder; E03.9 Hypothyroidism, unspecified; E78.5 Hyperlipidemia, unspecified
CPT/HCPCS: 36415; 80053; 80061; 80307; 84436; 84443; 84480; 84481; 85025

== ENCOUNTER 2021-12-17 12:50 | Emergency (ER) | payer BC, SELFPAY ==
[2021-12-17 12:51] VITALS: BP 134/84; PULSE 95; RESP 18; TEMP 36.4; O2SAT 98; BMI 27.8
--- NOTE | 2021-12-17 14:30 | EKG12_ITS ---
Test Reason : CP Blood Pressure : / mmHG Vent. Rate : 087 BPM Atrial Rate : 087 BPM P-R Int : 154 ms QRS Dur : 070 ms QT Int : 368 ms P-R-T Axes : 054 054 075 degrees QTc Int : 442 ms Normal sinus rhythm Nonspecific ST and T wave abnormality Abnormal ECG Confirmed by BERT PETTY, ROE ([id number]), publications editor JERALD MAYFIELD ([id number]) on 12/18/2021 9:02:28 AM Referred By: [facility] Confirmed By:ROE NOEL MD
--- NOTE | 2021-12-17 14:44 | ED.VIS.CHEST ---
HPI History of Present Illness Chief Complaint: Chest Other Informant: patient Narrative Narrative: 56-year-old female with a history of hypertension presenting to the emergency department out of concerns for chest pressure elevated blood pressure and tachycardia. Patient states that yesterday she began to feel tightness in her chest. She took her blood pressure and it was elevated. She also noticed that her heart rate would occasionally be in the 60s and sometimes about 104 while doing the same activity. She states that she her sister recall that she had a similar episode last year that was felt to be anxiety driven. Patient states that she does not really feel anxious. She has not felt her heart skipping beats. 104 is the heart rate max. [facility] Medical History Anxiety Breast cancer HTN (hypertension) Hyperlipemia MCTD (mixed connective tissue disease) Home Medications carvedilol 12.5 mg tablet 12.5 mg PO BID 11/28/20 [History Last Taken Unknown] ropinirole 1 mg tablet 1 mg PO QHS 11/28/20 [History Last Taken Unknown] lisinopril 20 mg-hydrochlorothiazide 12.5 mg tablet 1 tab PO DAILY 06/23/21 [History Last Taken Unknown] dextroamphetamine-amphetamine ER 20 mg 24hr capsule,extend release 1 cap PO DAILY 12/17/21 [History Last Taken Unknown] fluoxetine 20 mg capsule 1 cap PO DAILY 12/17/21 [History Last Taken Unknown] trazodone 50 mg tablet 1 - 2 tab PO QHS 12/17/21 [History Last Taken Unknown] Allergy/AdvReac Type Severity Reaction Status Date / Time No Known Allergies Allergy Verified 12/17/21 12:51 Surgical History History of bilateral mastectomy History of cholecystectomy History of tubal ligation Status post ORIF of fracture of ankle Social History Smoking Status: Former smoker ROS ROS ED Constitutional Constitutional ED: Denies chills or weight loss Eyes Eyes: Denies change in vision or diplopia ENT ENT ED: Denies ear pain, rhinorrhea or sore throat Cardiovascular Cardiovascular: Reports chest pain and racing heartbeat; Denies orthopnea or palpitations Respiratory/Chest Respiratory/Chest: Denies cough, dyspnea or orthopnea Gastrointestinal Gastrointestinal: Denies abdominal pain, diarrhea, nausea or vomiting Genitourinary Genitourinary ED: Denies dysuria, hematuria or urinary frequency Musculoskeletal Musculoskeletal: Denies arthralgias or myalgias Integumentary Denies abscess or rash Neurologic Neurologic: Denies headache(s) or weakness Psychiatric Psychiatric: Denies anxiety, depression, suicidal ideation or suicidal thoughts Endocrine Endocrinology: Denies polydipsia, polyphagia or polyuria Allergic/Immunologic Allergic/Immunologic ED: Denies mouth swelling, tongue swelling or urticaria EXAM Physical Exam Const Vital Signs: 12/17/21 12:51 12/17/21 13:45 12/17/21 15:00 Temperature 97.6 F L Temperature Source Temporal Pulse Rate 95 76 Respiratory Rate 18 18 Respiratory Effort Normal Non-Labored Respiratory Pattern Normal Blood Pressure 134/84 H 143/73 H Blood Pressure Mean 100 96 Pulse Ox 98 94 Oxygen Delivery Method Room Air Room Air 12/17/21 16:33 Temperature Temperature Source Pulse Rate 75 Respiratory Rate 14 Respiratory Effort Respiratory Pattern Blood Pressure 130/56 H Blood Pressure Mean 80 Pulse Ox 98 Oxygen Delivery Method Room Air Positive well nourished and well developed General Appearance ED: well developed HEENT Reports normocephalic, head/scalp atraumatic and moist mucous membranes Eyes PERRL and EOMs intact bilaterally Neck no lymphadenopathy, supple and no JVD Resp normal respiratory effort and clear to auscultation bilaterally Cardio regular rate, regular rhythm and no murmurs GI normal to inspection, nondistended, normoactive bowel sounds and non-tender Palpation: soft Back/Spine no CVA tenderness and normal ROM Extremity normal to inspection General Extremety ED: Negative for edema General Extremity: Negative for edema Neuro oriented x3 and CN's II-XII intact bilaterally Sensorium / Orientation: alert Motor Exam: strength 5/5 throughout Psych mental status grossly normal Mood & Affect: Negative for depressed or tearful Skin no rashes or lesions noted and no wounds MDM MDM MDM Narrative Medical decision making narrative: CBC BMP and troponin negative. My interpretation of the chest x-ray is no acute process normal mediastinum. No events on the monitor. The patient's ED course was delayed due to mislabeling of blood sample. At this point patient is in a normal sinus rhythm. Feel she can be safely discharged home return if worsening or concerns she will need to follow-up with her primary care doctor Lab Data Attestation: I reviewed the patient's lab results. Labs: Laboratory Results - last 24 hr 12/17/21 12/17/21 12/17/21 14:40 14:40 15:49 WBC Cancelled Corrected WBC Cancelled RBC Cancelled Hgb Cancelled Hct Cancelled MCV Cancelled MCH Cancelled MCHC Cancelled RDW Std Deviation Cancelled RDW Coeff of Citlaly Cancelled Plt Count Cancelled MPV Cancelled Immature Gran % (Auto) Cancelled Neut % (Auto) Cancelled Lymph % (Auto) Cancelled Bath % (Auto) Cancelled Eos % (Auto) Cancelled Baso % (Auto) Cancelled Absolute Neuts (auto) Cancelled Absolute Lymphs (auto) Cancelled Total Counted Cancelled Neutrophils % (Manual) Cancelled Band Neutrophils % Cancelled Lymphocytes % (Manual) Cancelled Monocytes % (Manual) Cancelled Eosinophils % (Manual) Cancelled Basophils % (Manual) Cancelled Metamyelocytes % Cancelled Myelocytes % Cancelled Promyelocytes % Cancelled Blast Cells % Cancelled Plasma Cell % (Manual) Cancelled Other Cells % Cancelled Nucleated RBC % Cancelled Nucleated RBCs/100 WBC Cancelled Differential Comment Cancelled Diff Path Review Cancelled Hypersegmented Neuts Cancelled Atypical Lymphocytes Cancelled Reactive Lymphocytes Cancelled Smudge Cells Cancelled Toxic Granulation Cancelled Toxic Vacuolation Cancelled Dohle Bodies Cancelled Dionicio Rods Cancelled Platelet Estimate Cancelled Plt Morphology Comment Cancelled RBC Morphology Cancelled Polychromasia Cancelled Hypochromasia Cancelled Poikilocytosis Cancelled Basophilic Stippling Cancelled Anisocytosis Cancelled Microcytosis Cancelled Macrocytosis Cancelled Spherocytes Cancelled Sickle Cells Cancelled Target Cells Cancelled Tear Drop Cells Cancelled Ovalocytes Cancelled Stomatocytes Cancelled Stuart-[place] Bodies Cancelled Mary Cells Cancelled Bite Cells Cancelled Crenated Cell Cancelled Acanthocytes (Spur) Cancelled Rouleaux Cancelled Schistocytes Cancelled Sodium Cancelled Potassium Cancelled Chloride Cancelled Carbon Dioxide Cancelled Anion Gap Cancelled BUN Cancelled Creatinine Cancelled Estim Creat Clear Calc Cancelled Est GFR (MDRD) Af Amer Cancelled Est GFR (MDRD) Non-Af Cancelled BUN/Creatinine Ratio Cancelled Glucose Cancelled Calcium Cancelled Total Bilirubin Cancelled AST Cancelled ALT Cancelled Alkaline Phosphatase Cancelled Troponin I High Sens Cancelled 4 Total Protein Cancelled Albumin Cancelled Globulin Cancelled Albumin/Globulin Ratio Cancelled 12/17/21 12/17/21 15:49 15:49 WBC 6.2 Corrected WBC RBC 4.50 Hgb 13.2 Hct 39.6 MCV 88.0 MCH 29.3 MCHC 33.3 RDW Std Deviation 42.1 RDW Coeff of Citlaly 13.1 Plt Count 260 MPV 10.0 Immature Gran % (Auto) 0.200 Neut % (Auto) 60.7 Lymph % (Auto) 28.4 Bath % (Auto) 8.7 Eos % (Auto) 1.4 Baso % (Auto) 0.6 Absolute Neuts (auto) 3.8 Absolute Lymphs (auto) 1.77 Total Counted Neutrophils % (Manual) Band Neutrophils % Lymphocytes % (Manual) Monocytes % (Manual) Eosinophils % (Manual) Basophils % (Manual) Metamyelocytes % Myelocytes % Promyelocytes % Blast Cells % Plasma Cell % (Manual) Other Cells % Nucleated RBC % 0 Nucleated RBCs/100 WBC Differential Comment Diff Path Review Hypersegmented Neuts Atypical Lymphocytes Reactive Lymphocytes Smudge Cells Toxic Granulation Toxic Vacuolation Dohle Bodies Dionicio Rods Platelet Estimate Plt Morphology Comment RBC Morphology Polychromasia Hypochromasia Poikilocytosis Basophilic Stippling Anisocytosis Microcytosis Macrocytosis Spherocytes Sickle Cells Target Cells Tear Drop Cells Ovalocytes Stomatocytes Stuart-Silverton Bodies [place] Cells Bite Cells Crenated Cell Acanthocytes (Spur) Rouleaux Schistocytes Sodium 139 Potassium 3.6 Chloride 106 Carbon Dioxide 27.0 Anion Gap 6 BUN 7 Creatinine 0.65 Estim Creat Clear Calc 76.43 Est GFR (MDRD) Af Amer 121 Est GFR (MDRD) Non-Af 100 BUN/Creatinine Ratio 10.8 Glucose 99 Calcium 9.5 Total Bilirubin AST ALT Alkaline Phosphatase Troponin I High Sens Total Protein Albumin Globulin Albumin/Globulin Ratio Radiography Diagnostic Testing: Clinical Impression(s) from Imaging Studies Chest X-Ray 12/17/21 15:08 IMPRESSION: Hyperinflation. The lungs are clear. Electronically Signed: Anthony Jaffe MD at 15:35 EDT , EKG Initial EKG: Attestation: I personally reviewed and interpreted this EKG as follows: Comments: Normal sinus rhythm with a ventricular rate of 87 bpm Discharge Plan Triage Chief Complaint: Chest Other Other Complaint: Palpitations ED Provider: Michael Alvarez Dx/Rx/DC Orders Prescriptions: No Action carvedilol 12.5 mg Tablet 12.5 mg PO BID ropinirole 1 mg Tablet 1 mg PO QHS lisinopril-hydrochlorothiazide 20-12.5 mg tablet 1 tab PO DAILY trazodone 50 mg tablet 1 - 2 tab PO QHS Label Comments: Take 1 or 2 Tablets By Oral Route at bedtime dextroamphetamine-amphetamine 20 mg capsule,extended release 24hr 1 cap PO DAILY Label Comments: TAKE 1 CAPSULE BY MOUTH ONCE DAILY IN THE MORNING fluoxetine 20 mg capsule 1 cap PO DAILY Primary Care Provider: Yanet Chance Referrals: Yanet Chance MD [Primary Care Provider] -
[2021-12-17 15:00] VITALS: BP 143/73; PULSE 76; RESP 18; O2SAT 94
--- NOTE | 2021-12-17 15:08 | RAD_ITS ---
STUDY: X-RAY CHEST REASON FOR EXAM: Female, 56 years old. Chest pain TECHNIQUE: Single AP portable view of the chest. COMPARISON: Comparison is made with prior study dated 01/11/2020. FINDINGS: Surgical clips are seen in the left axilla. Hyperinflation. Scattered calcified granulomas. No acute abnormality is seen. There is no demonstrated pleural abnormality. Normal size heart. Normal mediastinum and raul. Normal visualized pulmonary arteries. Normal visualized aortic arch and descending thoracic aorta. Normal visualized thoracic spine. Normal visualized ribs, clavicles, and shoulders. There is no demonstrated abnormality of the visualized soft tissue structures of the upper abdomen. RAD/Chest 1 View (Portable) IMPRESSION: Hyperinflation. The lungs are clear. Electronically Signed: Anthony Jaffe MD at 15:35 EDT ,
[2021-12-17 16:03] LABS: Absolute Lymphocyte Count 1.77 X10^3/uL (0.83-4.51); Absolute Neutrophil Count 3.8 X10^3/uL (2.0-7.7); Basophil# 0.04 X10^3/uL; Basophil% 0.6 % (0-1); Eosinophil# 0.09 X10^3/uL; Eosinophils% 1.4 % (0-5); Hematocrit 39.6 % (37-47); Hemoglobin 13.2 g/dL (12.0-15.0); Lymphocyte # 1.77 X10^3/ul (0.83-4.51); Lymphocyte % 28.4 % (19-41); Mean Corp Hgb Conc 33.3 g/dL (32-36); Mean Corpuscular Hgb 29.3 pg (27.0-32.0); Monocyte# 0.54 X10^3/uL; Monocyte% 8.7 % (0-10); NRBC Flagged by Analyzer 0 % (0-5); Neutrophil # 3.79 X10^3/uL (2.7-7.7); Neutrophil % 60.7 % (47-70); Platelet Count 260 K/mm3 (150-450); RBC Distribution Width CV 13.1 % (11.6-14.6); RBC Distribution Width SD 42.1 fl (35.1-43.9); White Blood Count 6.2 K/mm3 (4.4-11.0)
[2021-12-17 16:22] LABS: Troponin-I HS 4 pg/mL (3.0-54.0)
[2021-12-17 16:33] VITALS: BP 130/56; PULSE 75; RESP 14; O2SAT 98
[2021-12-17 17:22] LABS: Anion Gap 6 (5-15); BUN 7 mg/dL (7-18); BUN/Creat Ratio 10.8 RATIO (10-20); Calcium,Total 9.5 mg/dL (8.5-10.1); Chloride 106 mmol/L (98-107); Creatinine, Serum 0.65 mg/dL (0.55-1.02); EST Glomerular Filtration Rate 100 mL/min (>60); Est Glom Filt Rate - Afr Amer 121 mL/min (>60); Estimated Creatinine Clearance 76.43 ml/min; Glucose 99 mg/dL (74-106); Potassium 3.6 mmol/L (3.5-5.1); Sodium Level 139 mmol/L (136-145)
[2021-12-17 17:42] VITALS: PULSE 71; RESP 16; O2SAT 97
== END 2021-12-17 17:42 | disposition home or self-care (01) ==
PROVIDERS: Emergency Provider Emergency Medicine; PCP Internal Medicine; Visit Provider Emergency Medicine
DX: R00.2 Palpitations (principal); I10 Essential (primary) hypertension; Z87.891 Personal history of nicotine dependence; E78.5 Hyperlipidemia, unspecified; Z85.3 Personal history of malignant neoplasm of breast
CPT/HCPCS: 71045; 80048; 84484; 85025; 93005; 99284

== ENCOUNTER 2022-09-13 09:54 | Emergency (ER) | payer BC, SELFPAY ==
[2022-09-13 09:55] VITALS: BP 145/126; PULSE 85; RESP 16; TEMP 36.4; O2SAT 100; BMI 26.5
[2022-09-13 10:20] VITALS: BP 139/68; PULSE 76; RESP 15; O2SAT 99
--- NOTE | 2022-09-13 10:46 | EX.ED.DYSGE1 ---
HPI History of Present Illness Chief Complaint: Hypertension Informant: patient Onset/Context/Timing Onset: Weeks Context: Gradual Onset Timing: Continuous Quality: Aching Location: Head Worsened by: Nothing Relieved by: Nothing Narrative Narrative: Patient presents with high blood pressure, headache, and nausea that has been constant for the past few weeks. Patient states that her blood pressure has been running high at home. Patient states she did have an episode where she had some blurred vision that lasted a few minutes and then resolved. Patient states she also had an episode where she had epistaxis. Patient admits to some intermittent chest tightness. Patient admits to some nausea but denies any vomiting. Patient admits to a headache that is diffuse across her head. Patient states she had recent back x-rays for back pain. Patient states that they noted vascular calcifications on this. Patient is concerned that this is causing her blood pressure to become elevated. [facility] Medical History Anxiety Breast cancer HTN (hypertension) Hyperlipemia MCTD (mixed connective tissue disease) Home Medications carvedilol 12.5 mg tablet 12.5 mg PO BID 11/28/20 [History Last Taken Unknown] ropinirole 1 mg tablet 1 mg PO QHS 11/28/20 [History Last Taken Unknown] dextroamphetamine-amphetamine ER 20 mg 24hr capsule,extend release 1 cap PO DAILY 12/17/21 [History Last Taken Unknown] trazodone 50 mg tablet 1 - 2 tab PO QHS 12/17/21 [History Last Taken Unknown] alprazolam 0.5 mg tablet 0.5 mg PO BID PRN PRN Anxiety 09/13/22 [History Last Taken Unknown] gabapentin 100 mg capsule 50 mg PO TID 09/13/22 [History Last Taken Unknown] lisinopril 20 mg-hydrochlorothiazide 12.5 mg tablet 1 tab PO DAILY #30 tabs 09/13/22 [Rx Last Taken Unknown] naproxen 500 mg tablet 500 mg PO BID PRN PRN Pain 09/13/22 [History Last Taken Unknown] Allergy/AdvReac Type Severity Reaction Status Date / Time No Known Allergies Allergy Verified 09/13/22 09:56 Surgical History History of bilateral mastectomy History of cholecystectomy History of tubal ligation Status post ORIF of fracture of ankle Social History Smoking Status: Former smoker ROS ROS ED Constitutional Constitutional ED: Denies chills or fever(s) Eyes Eyes: Reports blurry vision; Denies change in vision ENT ENT ED: Reports epistaxis; Denies rhinorrhea or sore throat Cardiovascular Cardiovascular: Reports chest pain; Denies palpitations Respiratory/Chest Respiratory/Chest: Denies cough or dyspnea Gastrointestinal Gastrointestinal: Reports nausea; Denies vomiting Genitourinary Genitourinary ED: Denies dysuria or hematuria Musculoskeletal Musculoskeletal: Reports back pain; Denies neck pain Integumentary Reports rash; Denies abscess Neurologic Neurologic: Reports headache(s); Denies weakness Allergic/Immunologic Allergic/Immunologic ED: Denies mouth swelling or urticaria EXAM Physical Exam Const Vital Signs: 09/13/22 09:55 09/13/22 10:20 09/13/22 10:38 Temperature 97.5 F L Temperature Source Temporal Pulse Rate 85 76 Respiratory Rate 16 15 Respiratory Effort Normal Respiratory Pattern Normal Blood Pressure 145/126 H 139/68 H Blood Pressure Mean 132 91 Pulse Ox 100 99 Oxygen Delivery Method Room Air Room Air Positive well nourished and well developed General Appearance ED: well developed HEENT Reports moist mucous membranes Neck supple and no JVD Resp normal respiratory effort and clear to auscultation bilaterally Cardio regular rate, regular rhythm and no murmurs GI normal to inspection, nondistended, normoactive bowel sounds and non-tender Palpation: soft Extremity normal to inspection General Extremety ED: Negative for edema or tenderness General Extremity: Negative for edema Neuro oriented x3, CN's II-XII intact bilaterally and no sensory deficits noted Sensorium / Orientation: alert Motor Exam: strength 5/5 throughout Psych mental status grossly normal Skin no rashes or lesions noted MDM MDM MDM Narrative Medical decision making narrative: Differential diagnosis includes hypertension, tension headache, viral illness, electrolyte abnormality, renal insufficiency, and cardiac ischemia. EKG will be obtained to assess for cardiac dysrhythmia and cardiac ischemia. CBC will be obtained to assess for anemia and leukocytosis. Basic metabolic profile will be obtained to assess for renal function and electrolyte abnormality. CT scan of the brain will be obtained to assess for intracranial bleeding or mass. Chest x-ray will be obtained to assess for congestive heart failure and pneumonia. Lab Data Attestation: I reviewed the patient's lab results. Lab results narrative: CBC was reviewed and was within normal limits. Basic metabolic profile was reviewed and was within normal limits. High-sensitivity troponin was reviewed and was normal at 6. Labs: Laboratory Results - last 24 hr 09/13/22 09/13/22 10:50 10:50 WBC 5.8 RBC 4.24 Hgb 13.0 Hct 38.5 MCV 90.8 MCH 30.7 MCHC 33.8 RDW Std Deviation 40.5 RDW Coeff of Citlaly 12.2 Plt Count 230 MPV 10.5 Immature Gran % (Auto) 0.200 Neut % (Auto) 66.8 Lymph % (Auto) 23.8 [place] % (Auto) 7.3 Eos % (Auto) 1.4 Baso % (Auto) 0.5 Absolute Neuts (auto) 3.9 Absolute Lymphs (auto) 1.37 Nucleated RBC % 0 Sodium 142 Potassium 4.1 Chloride 107 Carbon Dioxide 30.0 Anion Gap 5 BUN 16 Creatinine 0.62 Estim Creat Clear Calc 79.18 Est GFR (MDRD) Af Amer 128 Est GFR (MDRD) Non-Af 106 BUN/Creatinine Ratio 25.9 H Glucose 106 Calcium 9.0 Troponin I High Sens 6 Radiography Chest X-Ray - ED: 2 View, Read by ED Physician, Read by Radiologist and No Acute Disease Diagnostic Testing: Clinical Impression(s) from Imaging Studies Brain CT 09/13/22 10:52 IMPRESSION: Normal unenhanced CT scan of the brain. Electronically Signed: Tejas Stevens MD at 11:38 EDT , Chest X-Ray 09/13/22 11:35 IMPRESSION: Normal x-ray examination of the chest. Electronically Signed: Tejas Stevens MD at 11:52 EDT , CT scan of the brain was obtained. There is no acute intracranial abnormality. This was interpreted by the radiologist and was also independently reviewed by myself. PA and lateral chest x-ray was obtained. There are 2 views. On my independent interpretation, lung olmedo are clear. There is normal cardiac silhouette. Bony thorax is normal. There is no acute process noted. Radiologist also interpreted the x-ray and agrees. Treatment and Re-Evaluation :: Hep-Lock was established. Patient's blood pressure was 109/95 on my evaluation. I do not feel patient requires antihypertensive medications at this time. Patient was resting comfortably on reevaluation. Patient states she has been out of her lisinopril and hydrochlorothiazide due to insurance reasons. Patient states that her pharmacist told her that her lisinopril needed to be a mail order prescription. Patient is requesting a prescription refill for her lisinopril hydrochlorothiazide combination until she can follow-up with her primary care physician. Patient is requesting that it gets filled here. This was ordered. Patient was instructed to follow-up with her primary care physician in 5 to 7 days. Patient was instructed to continue to monitor her blood pressures and to keep a log of them. Patient was instructed to return if worse in any way. Patient understood and was agreeable with the plan. All questions were answered. Discharge Plan Triage Chief Complaint: Hypertension ED Provider: Yves Killian Dx/Rx/DC Orders Clinical Impression: Hypertension Instructions: ED Hypertension, Established Prescriptions: Continued lisinopril-hydrochlorothiazide 20-12.5 mg tablet 1 tab PO DAILY Qty: 30 0RF No Action carvedilol 12.5 mg Tablet 12.5 mg PO BID ropinirole 1 mg Tablet 1 mg PO QHS trazodone 50 mg tablet 1 - 2 tab PO QHS Label Comments: Take 1 or 2 Tablets By Oral Route at bedtime dextroamphetamine-amphetamine 20 mg capsule,extended release 24hr 1 cap PO DAILY Label Comments: TAKE 1 CAPSULE BY MOUTH ONCE DAILY IN THE MORNING alprazolam 0.5 mg tablet 0.5 mg PO BID PRN PRN (Reason: Anxiety) gabapentin 100 mg capsule 50 mg PO TID Label Comments: Take 1 capsule by mouth three times daily for 90 days. naproxen 500 mg tablet 500 mg PO BID PRN PRN (Reason: Pain) Primary Care Provider: Yanet Chance Referrals: Yanet Chance MD [Primary Care Provider] - 5-7 Days Disposition Disposition: Home, Self Care
--- NOTE | 2022-09-13 10:52 | CT_ITS ---
STUDY: CT BRAIN WITHOUT CONTRAST REASON FOR EXAM: Female, 57 years old. Headache RADIATION DOSAGE (If Supplied By Facility): CTDIvol = ( 44.99 ) mGy, DLP = ( 745.49 ) mGycm TECHNIQUE: Transaxial CT imaging of the brain was performed without administration of intravenous contrast material. Individualized dose optimization techniques were used for this CT. COMPARISON: 09/16/2020 FINDINGS: Normal soft tissue structures. Normal calvarium. Normal size ventricles and extra-axial spaces for the patient''s age. Normal white matter tracts of the cerebral hemispheres. Normal basal ganglia and thalami. Normal brainstem. Normal cerebellum. There is no intracranial hemorrhage. There are no findings of an acute ischemic infarction. Normal visualized paranasal sinuses. CT/Brain/Head without Contrast IMPRESSION: Normal unenhanced CT scan of the brain. Electronically Signed: Tejas Stevens MD at 11:38 EDT ,
--- NOTE | 2022-09-13 10:52 | EKG12_ITS ---
Test Reason : HYPERTENSION Blood Pressure : / mmHG Vent. Rate : 066 BPM Atrial Rate : 066 BPM P-R Int : 194 ms QRS Dur : 080 ms QT Int : 426 ms P-R-T Axes : 046 028 081 degrees QTc Int : 446 ms Normal sinus rhythm Nonspecific ST and T wave abnormality Abnormal ECG Confirmed by BERT PETTY, ROE ([id number]), editor news JERALD MAYFIELD ([id number]) on 09/15/2022 9:55:06 AM Referred By: HONORIO Confirmed By:ROE NOEL MD
[2022-09-13 11:04] LABS: Absolute Lymphocyte Count 1.37 X10^3/uL (0.83-4.51); Absolute Neutrophil Count 3.9 X10^3/uL (2.0-7.7); Basophil# 0.03 X10^3/uL; Basophil% 0.5 % (0-1); Eosinophil# 0.08 X10^3/uL; Eosinophils% 1.4 % (0-5); Hematocrit 38.5 % (37-47); Lymphocyte # 1.37 X10^3/ul (0.83-4.51); Lymphocyte % 23.8 % (19-41); Mean Corp Hgb Conc 33.8 g/dL (32-36); Mean Corpuscular Hgb 30.7 pg (27.0-32.0); Mean Corpuscular Volume 90.8 fL (81-99); Mean Platelet Vol. 10.5 fl (6.2-12.0); Monocyte# 0.42 X10^3/uL; Monocyte% 7.3 % (0-10); NRBC Flagged by Analyzer 0 % (0-5); Neutrophil # 3.85 X10^3/uL (2.7-7.7); Neutrophil % 66.8 % (47-70); Platelet Count 230 K/mm3 (150-450); RBC Distribution Width CV 12.2 % (11.6-14.6); RBC Distribution Width SD 40.5 fl (35.1-43.9); Red Blood Count 4.24 M/mm3 (4.2-5.4); White Blood Count 5.8 K/mm3 (4.4-11.0)
[2022-09-13 11:20] LABS: Anion Gap 5 (5-15); BUN 16 mg/dL (7-18); BUN/Creat Ratio 25.9 RATIO (10-20); Chloride 107 mmol/L (98-107); Creatinine, Serum 0.62 mg/dL (0.55-1.02); EST Glomerular Filtration Rate 106 mL/min (>60); Est Glom Filt Rate - Afr Amer 128 mL/min (>60); Estimated Creatinine Clearance 79.18 ml/min; Glucose 106 mg/dL (74-106); Potassium 4.1 mmol/L (3.5-5.1); Sodium Level 142 mmol/L (136-145); Troponin-I HS 6 pg/mL (3.0-54.0)
--- NOTE | 2022-09-13 11:35 | RAD_ITS ---
STUDY: X-RAY CHEST REASON FOR EXAM: Female, 57 years old. Hypertension TECHNIQUE: PA and lateral views of the chest. COMPARISON: 12/17/2021 FINDINGS: EKG leads overlie the chest The lungs are clear and expanded. There is no demonstrated pleural abnormality. Normal size heart. Normal mediastinum and raul. Normal visualized pulmonary arteries. Normal visualized aortic arch and descending thoracic aorta. Normal visualized thoracic spine. Normal visualized ribs, clavicles, and shoulders. There is no demonstrated abnormality of the visualized soft tissue structures of the upper abdomen. RAD/Chest PA and Lateral IMPRESSION: Normal x-ray examination of the chest. Electronically Signed: Tejas Stevens MD at 11:52 EDT ,
== END 2022-09-13 13:01 | disposition home or self-care (01) ==
PROVIDERS: Emergency Provider Emergency Medicine; PCP Internal Medicine; Visit Provider Emergency Medicine
DX: I10 Essential (primary) hypertension (principal); Z87.891 Personal history of nicotine dependence; E78.5 Hyperlipidemia, unspecified; Z85.3 Personal history of malignant neoplasm of breast
CPT/HCPCS: 70450; 71046; 80048; 84484; 85025; 93005; 99284

== ENCOUNTER 2023-12-10 13:04 | Emergency (ER) | payer BC, SELFPAY ==
[2023-12-10 13:05] VITALS: BP 116/69; PULSE 78; RESP 16; TEMP 36.6; O2SAT 96; BMI 32.4
--- NOTE | 2023-12-10 13:16 | EDS_ITS ---
HPI History of Present Illness Chief Complaint: Cold Sx Informant: patient and family (Sister) Onset/Context/Timing Onset: Days Context: sudden Timing: Continuous Quality: Positive for Dyspnea on exertion Worsened by: - (Talking) Relieved by: Nothing Associated Symptoms cough; Negative for rhinorrhea, post nasal drip, ear pain, fever, sore throat, chills, sweats, clear sputum, white sputum, yellow sputum or green sputum Chest Pain: Positive for None Narrative Narrative: Patient presents with shortness of breath that has been getting worse over the past few days. Patient states that they began shortly after having lymph node biopsy performed. Patient was recently diagnosed with stage III lung cancer. Patient states that her breathing is worse with prolonged talking. Patient states nothing makes it better. Patient admits to a cough but is unable to produce any sputum. Patient denies any fevers or chills. Patient denies any chest pain. Patient denies any sore throat or rhinorrhea. Patient admits to some increasing fatigue. Patient states she also feels congested in her chest. PE Risk Factors: Positive for Cancer and Recent surgery; Negative for OCP + Smoking + > 35, Prior DVT or PE or Recent immobilization [facility] Medical History MCTD (mixed connective tissue disease) Breast cancer Anxiety Hyperlipemia HTN (hypertension) Home Medications ?Medication ?Instructions ?Recorded ?Last Taken ?Type carvedilol 12.5 mg tablet 12.5 mg PO BID 11/28/20 Unknown History ropinirole 1 mg tablet 1 mg PO QHS 11/28/20 Unknown History dextroamphetamine-amphetamine ER 1 cap PO DAILY 12/17/21 Unknown History 20 mg 24hr capsule,extend release trazodone 50 mg tablet 1 - 2 tab PO QHS 12/17/21 Unknown History alprazolam 0.5 mg tablet 0.5 mg PO BID PRN PRN Anxiety 09/13/22 Unknown History gabapentin 100 mg capsule 50 mg PO TID 09/13/22 Unknown History lisinopril 20 1 tab PO DAILY #30 tabs 09/13/22 Unknown Rx mg-hydrochlorothiazide 12.5 mg tablet naproxen 500 mg tablet 500 mg PO BID PRN PRN Pain 09/13/22 Unknown History Allergy/AdvReac Type Severity Reaction Status Date / Time No Known Allergies Allergy Verified 12/10/23 13:06 Surgical History History of tubal ligation History of cholecystectomy Status post ORIF of fracture of ankle History of bilateral mastectomy Social History Smoking Status: Former smoker ROS ROS ED Constitutional Constitutional ED: Denies chills or fever(s) Eyes Eyes: Denies blurry vision or change in vision ENT ENT ED: Denies rhinorrhea or sore throat Cardiovascular Cardiovascular: Denies chest pain or palpitations Respiratory/Chest Respiratory/Chest: Denies cough or dyspnea Gastrointestinal Gastrointestinal: Reports nausea; Denies vomiting Genitourinary Genitourinary ED: Denies dysuria or hematuria Musculoskeletal Musculoskeletal: Reports back pain; Denies neck pain Integumentary Denies abscess or rash Neurologic Neurologic: Denies headache(s) or weakness Allergic/Immunologic Allergic/Immunologic ED: Denies mouth swelling or urticaria EXAM Physical Exam Const Vital Signs: 12/10/23 13:05 12/10/23 13:28 12/10/23 14:06 Temperature 97.8 F 97.8 F Temperature Source Temporal Temporal Pulse Rate 78 77 Respiratory Rate 16 19 H Blood Pressure 116/69 126/76 H Blood Pressure Mean 84 92 Pulse Ox 96 98 Oxygen Delivery Method Room Air Room Air Room Air Positive well nourished and well developed General Appearance ED: well developed and NAD HEENT atraumatic Neck supple, no meningeal signs and no JVD Resp normal respiratory effort and clear to auscultation bilaterally Cardio regular rate and regular rhythm GI non-tender and non-distended Palpation: soft Extremity normal to inspection General Extremety ED: Negative for edema or tenderness General Extremity: Negative for edema Neuro oriented x3, CN's II-XII intact bilaterally and no sensory deficits noted [place] Coma Scale: document GCS findings Spontaneous Obeys Commands Oriented 15 Sensorium / Orientation: alert Motor Exam: strength 5/5 throughout Psych mental status grossly normal MDM MDM MDM Narrative Medical decision making narrative: Differential diagnosis includes pneumothorax, pneumomediastinum, pulmonary embolism, cardiac dysrhythmia, cardiac ischemia, electrolyte abnormality, and anxiety. EKG will be obtained to assess for cardiac dysrhythmia and cardiac ischemia. CTA of the chest will be obtained to assess for pulmonary embolism, pneumothorax, and pneumomediastinum. CBC will be obtained to assess for leukocytosis and anemia. Basic metabolic profile will be obtained to assess for electrolyte abnormality and renal function. High-sensitivity troponin will be obtained to assess for cardiac ischemia. Lab Data Attestation: I reviewed the patient's lab results. Lab results narrative: CBC was reviewed and was within normal limits. Basic metabolic profile was reviewed and was within normal limits. High-sensitivity troponin was reviewed and was normal at 5. Labs: Laboratory Results - last 24 hr 12/10/23 13:40 WBC 7.6 RBC 4.30 Hgb 13.1 Hct 38.6 MCV 89.8 MCH 30.5 MCHC 33.9 RDW Std Deviation 41.1 RDW Coeff of Citlaly 12.6 Plt Count 269 MPV 10.3 Immature Gran % (Auto) 0.300 Neut % (Auto) 63.1 Lymph % (Auto) 22.0 [place] % (Auto) 9.7 Eos % (Auto) 4.4 Baso % (Auto) 0.5 Absolute Neuts (auto) 4.8 Absolute Lymphs (auto) 1.66 Nucleated RBC % 0 Sodium 137 Potassium 3.7 Chloride 104 Carbon Dioxide 27.0 Anion Gap 6 BUN 18 Creatinine 0.77 Estim Creat Clear Calc 78.24 Est GFR (MDRD) Af Amer 99 Est GFR (MDRD) Non-Af 82 BUN/Creatinine Ratio 23.4 H Glucose 103 Calcium 9.4 Troponin I High Sens 5 Radiography CTA PE Study: No Evidence of PE and No Evidence of Dissection Diagnostic Testing: Clinical Impression(s) from Imaging Studies Chest CTA 12/10/23 13:27 IMPRESSION: CTA chest examination, without a demonstrated pulmonary embolism or arterial dissection. Right upper lobe masses. Bronchoscopy and/or biopsy recommended for further evaluation. Electronically Signed: Juan Hawkins MD at 15:13 EDT , CTA of the chest was obtained. There is no evidence of pulmonary embolism or aortic dissection. There are right upper lobe masses. This was interpreted by the radiologist and was also independently reviewed by myself. EKG Initial EKG: Attestation: I personally reviewed and interpreted this EKG as follows: Interpretation: Sinus Rhythm (71) and No Acute Injury Pattern Comments: EKG was obtained. On my independent interpretation, it showed a normal sinus rhythm with a rate of 71. ND interval, QRS interval, and QTc intervals were all normal. [place] was normal. There are no acute ST or T wave changes. Prior EKG tracings: available for review Prior: Unchanged (09/13/2022) Treatment and Re-Evaluation :: Patient was given a dose of aspirin here. Patient was advised of her findings. Patient is feeling better on reevaluation. Patient was instructed to follow-up with her primary care physician and oncologist in 5 to 7 days. Patient and family understood and were agreeable with the plan. All questions were answered. Discharge Plan Triage Chief Complaint: Cold Sx ED Provider: Yves Killian Dx/Rx/DC Orders Clinical Impression: Dyspnea, Lung cancer, upper lobe Instructions: ED Dyspnea Prescriptions: No Action carvedilol 12.5 mg Tablet 12.5 mg PO BID ropinirole 1 mg Tablet 1 mg PO QHS trazodone 50 mg tablet 1 - 2 tab PO QHS Patient Comments: Take 1 or 2 Tablets By Oral Route at bedtime dextroamphetamine-amphetamine 20 mg capsule,extended release 24hr 1 cap PO DAILY Patient Comments: TAKE 1 CAPSULE BY MOUTH ONCE DAILY IN THE MORNING alprazolam 0.5 mg tablet 0.5 mg PO BID PRN PRN (Reason: Anxiety) gabapentin 100 mg capsule 50 mg PO TID Patient Comments: Take 1 capsule by mouth three times daily for 90 days. naproxen 500 mg tablet 500 mg PO BID PRN PRN (Reason: Pain) lisinopril-hydrochlorothiazide 20-12.5 mg tablet 1 tab PO DAILY Qty: 30 0RF Primary Care Provider: Yanet Chance Referrals: Yanet Chance MD [Primary Care Provider] - 5-7 Days Print Language: Citizen Of [place] Disposition Disposition: Home, Self Care
--- NOTE | 2023-12-10 13:27 | CT_ITS ---
STUDY: CTA CHEST REASON FOR EXAM: Female, 58 years old. Dyspnea RADIATION DOSAGE (If Supplied By Facility): CTDIvol = ( 4.87 ) mGy, DLP = ( 167.33 ) mGycm TECHNIQUE: The examination was performed with the intravenous administration of IV 100mL Isovue-370. Post-processing of the angiographic images was performed, with multiplanar reformation and 3D reconstruction. Individualized dose optimization techniques were used for this CT. COMPARISON: None. FINDINGS: Normal enhancement of the main pulmonary artery and right and left pulmonary arteries. Normal enhancement of the bilateral peripheral pulmonary arteries. There is no demonstrated pulmonary embolism. There is atherosclerotic calcification of the thoracic aorta. There is no demonstrated aortic dissection. There are calcifications of the coronary arteries. Normal mediastinum. Normal hilar regions. Normal visualized trachea and bronchi. The lungs are well expanded. There is 4.4 x 4.0 cm right upper lobe mass. There is adjacent 1.0 x 1.0 cm mass. Normal pleura. Normal chest wall structures. There is degenerative change of the spine. Normal visualized upper abdomen. CT/CTA Chest W/WO Contrast IMPRESSION: CTA chest examination, without a demonstrated pulmonary embolism or arterial dissection. Right upper lobe masses. Bronchoscopy and/or biopsy recommended for further evaluation. Electronically Signed: Juan Hawkins MD at 15:13 EDT ,
--- NOTE | 2023-12-10 13:28 | EKG12_ITS ---
Test Reason : COLD SX Blood Pressure : / mmHG Vent. Rate : 071 BPM Atrial Rate : 071 BPM P-R Int : 176 ms QRS Dur : 082 ms QT Int : 414 ms P-R-T Axes : 050 029 060 degrees QTc Int : 449 ms Normal sinus rhythm Normal ECG Confirmed by GILMAR PETTY, BINTA ([id number]), newspaper photo editor SHIRA SHEARER ([id number]) on 12/12/2023 9:50:29 AM Referred By: Confirmed By:BINTA SCHAFER MD
[2023-12-10 13:50] LABS: Absolute Lymphocyte Count 1.66 X10^3/uL (0.83-4.51); Absolute Neutrophil Count 4.8 X10^3/uL (2.0-7.7); Basophil# 0.04 X10^3/uL; Basophil% 0.5 % (0-1); Eosinophil# 0.33 X10^3/uL; Eosinophils% 4.4 % (0-5); Hematocrit 38.6 % (37-47); Hemoglobin 13.1 g/dL (12.0-15.0); Lymphocyte # 1.66 X10^3/ul (0.83-4.51); Mean Corp Hgb Conc 33.9 g/dL (32-36); Mean Corpuscular Hgb 30.5 pg (27.0-32.0); Mean Corpuscular Volume 89.8 fL (81-99); Mean Platelet Vol. 10.3 fl (6.2-12.0); Monocyte# 0.73 X10^3/uL; Monocyte% 9.7 % (0-10); NRBC Flagged by Analyzer 0 % (0-5); Neutrophil # 4.78 X10^3/uL (2.7-7.7); Neutrophil % 63.1 % (47-70); Platelet Count 269 K/mm3 (150-450); RBC Distribution Width CV 12.6 % (11.6-14.6); RBC Distribution Width SD 41.1 fl (35.1-43.9); White Blood Count 7.6 K/mm3 (4.4-11.0)
[2023-12-10 14:06] VITALS: BP 126/76; PULSE 77; RESP 19; TEMP 36.6; O2SAT 98
[2023-12-10 14:13] LABS: Anion Gap 6 (5-15); BUN 18 mg/dL (7-18); BUN/Creat Ratio 23.4 RATIO (10-20); Calcium,Total 9.4 mg/dL (8.5-10.1); Chloride 104 mmol/L (98-107); Creatinine, Serum 0.77 mg/dL (0.55-1.02); EST Glomerular Filtration Rate 82 mL/min (>60); Est Glom Filt Rate - Afr Amer 99 mL/min (>60); Estimated Creatinine Clearance 78.24 ml/min; Glucose 103 mg/dL (74-106); Potassium 3.7 mmol/L (3.5-5.1); Sodium Level 137 mmol/L (136-145); Troponin-I HS 5 pg/mL (3.0-54.0)
[2023-12-10] MEDS: Aspirin 81 MG TAB.CHEW 324 MG PO (14:21)
[2023-12-10 15:04] VITALS: BP 113/68; PULSE 73; RESP 15; TEMP 36.7; O2SAT 97
[2023-12-10 15:56] VITALS: BP 113/68; PULSE 73; RESP 15; TEMP 36.7; O2SAT 97
== END 2023-12-10 15:57 | disposition home or self-care (01) ==
PROVIDERS: Emergency Provider Emergency Medicine; PCP Internal Medicine; Visit Provider Emergency Medicine
DX: R06.00 Dyspnea, unspecified (principal); C34.10 Malignant neoplasm of upper lobe, unspecified bronchus or lung; Z87.891 Personal history of nicotine dependence; M54.9 Dorsalgia, unspecified; R11.0 Nausea; Z90.49 Acquired absence of other specified parts of digestive tract; Z98.51 Tubal ligation status; I10 Essential (primary) hypertension; E78.5 Hyperlipidemia, unspecified; Z85.3 Personal history of malignant neoplasm of breast
CPT/HCPCS: 71275; 80048; 84484; 85025; 93005; 99284; Q9967

== ENCOUNTER 2024-03-16 08:52 | Outpatient (CLI) | payer BC, SELFPAY ==
[2024-03-16] MEDS: Acetaminophen 325 MG Tablet 650 MG PO (09:27)
[2024-03-16] MEDS: 0.9% Normal Saline (500mL Bag) 500 ML 15 ML IV (09:28)
[2024-03-16] MEDS: 0.9% NaCl Peripheral Flush Adult/Peds IV (09:28)
[2024-03-16 09:32] VITALS: BP 127/72; PULSE 101; RESP 16; TEMP 36.2; O2SAT 100; BMI 21.9
[2024-03-16 10:13] VITALS: BP 143/70; PULSE 96; RESP 16; TEMP 36.4; O2SAT 100
[2024-03-16 11:14] VITALS: BP 103/64; PULSE 94; RESP 16; TEMP 36.3; O2SAT 100
[2024-03-16 12:00] VITALS: BP 127/67; PULSE 93; RESP 16; TEMP 36.6; O2SAT 100
== END 2024-03-16 23:59 | disposition home or self-care (01) ==
LOC: MEDOUTP 08:53
PROVIDERS: PCP Internal Medicine; Referring Provider Internal Medicine Hematology & Oncology; Visit Provider Internal Medicine Hematology & Oncology
DX: D64.81 Anemia due to antineoplastic chemotherapy (principal)
CPT/HCPCS: 36430; 86850; 86900; 86901; 86920; 86922; J7040; P9016; A4216

== ENCOUNTER 2024-03-26 11:59 | Inpatient (IN) | payer BC, SELFPAY ==
[2024-03-26] VITALS (15 sets, daily range): BP systolic 110–139; BP diastolic 58–84; PULSE 70–103; RESP 15–18; TEMP 35.9–37.6; O2SAT 94–100; BMI 23.2; BMI 24.2
[2024-03-26 13:56] LABS: Absolute Neutrophil Count 12.3 X10^3/uL (2.0-7.7); Basophil# 0.02 X10^3/uL; Basophil% 0.1 % (0-1); Hematocrit 20.8 % (37-47); Hemoglobin 6.9 g/dL (12.0-15.0); Lymphocyte % 2.7 % (19-41); Mean Corp Hgb Conc 33.2 g/dL (32-36); Mean Corpuscular Hgb 31.1 pg (27.0-32.0); Mean Corpuscular Volume 93.7 fL (81-99); Mean Platelet Vol. 10.3 fl (6.2-12.0); Monocyte# 2.09 X10^3/uL; Monocyte% 13.9 % (0-10); NRBC Flagged by Analyzer 0 % (0-5); Neutrophil # 12.33 X10^3/uL (2.7-7.7); Neutrophil % 81.7 % (47-70); POSITIVE DIFFERENTIAL YES; Platelet Count 163 K/mm3 (150-450); RBC Distribution Width CV 17.1 % (11.6-14.6); RBC Distribution Width SD 55.4 fl (35.1-43.9); Red Blood Count 2.22 M/mm3 (4.2-5.4); White Blood Count 15.1 K/mm3 (4.4-11.0)
--- NOTE | 2024-03-26 14:01 | EKG12_ITS ---
Test Reason : NAUSEA Blood Pressure : / mmHG Vent. Rate : 103 BPM Atrial Rate : 103 BPM P-R Int : 156 ms QRS Dur : 080 ms QT Int : 344 ms P-R-T Axes : 066 067 071 degrees QTc Int : 450 ms Sinus tachycardia Possible Left atrial enlargement Nonspecific ST abnormality Abnormal ECG Confirmed by Carmelo Knox ([id number]), legal editor SHIRA SHEARER ([id number]) on 03/27/2024 10:10:52 AM Referred By: Confirmed By:Carmelo Knox
--- NOTE | 2024-03-26 14:01 | CT_ITS ---
EXAM: CT ABDOMEN AND PELVIS WITH INTRAVENOUS CONTRAST CLINICAL INDICATION: RLQ pain n,v TECHNIQUE: Helically acquired images were obtained of the abdomen and pelvis with intravenous contrast. This CT exam was performed using one or more of the following dose reduction techniques: automated exposure control, adjustment of the mA and/or kV according to patient size, and/or use of iterative reconstruction technique. CONTRAST: IV 100mL Isovue-300 COMPARISON: No relevant prior studies available. FINDINGS: LOWER THORAX: Unremarkable. Lung bases are clear. No cardiomegaly. No significant pericardial effusion. ABDOMEN: LIVER: Unremarkable. Homogeneous. No focal mass. GALLBLADDER AND BILE DUCTS: There are surgical clips from a cholecystectomy. No intra- or extrahepatic biliary ductal dilation. PANCREAS: Unremarkable. No focal cystic or solid mass. SPLEEN: Unremarkable. Normal size without focal cystic or solid mass. ADRENALS: Unremarkable. No nodules. KIDNEYS AND URETERS: There are low-density masses in the kidneys compatible with simple cysts. No follow-up imaging is needed. No hydronephrosis. STOMACH AND BOWEL: There are fluid-filled loops of small bowel which may represent enteritis. There are sigmoid diverticula. No stomach or bowel distention. PELVIS: APPENDIX: No evidence of acute appendicitis. BLADDER: Unremarkable. REPRODUCTIVE: Unremarkable as visualized. No mass. ABDOMEN and PELVIS: INTRAPERITONEAL SPACE: Unremarkable. No ascites or other fluid collection. No free air. BONES/JOINTS: Unremarkable. No suspicious lytic or blastic abnormality. SOFT TISSUES: Unremarkable. No discrete abdominal or pelvic wall hernia. VASCULATURE: Unremarkable. Abdominal aorta is non-dilated. LYMPH NODES: Unremarkable. No enlarged lymph nodes. CT/Abdomen/Pelvis W IV Cont ONLY IMPRESSION: Fluid-filled loops of small bowel which may represent enteritis. No other acute abnormalities are identified. Electronically Signed: Julio César Rey MD at 16:42 EDT ,
[2024-03-26 14:04] LABS: Differential Indicated SCAN CRITERIA MET
[2024-03-26 14:17] LABS: ALB/GLOB Ratio 0.6 RATIO (0.9-2.4); AST(SGOT) 16 U/L (15-37); Alanine Aminotransfer ALT/SGPT 18 U/L (13-56); Albumin, Serum 2.9 g/dL (3.2-5.0); Alkaline Phosphatase 87 U/L (45-117); Anion Gap 11 (5-15); BUN 14 mg/dL (7-18); BUN/Creat Ratio 17.1 RATIO (10-20); Chloride 96 mmol/L (98-107); Creatinine, Serum 0.82 mg/dL (0.55-1.02); EST Glomerular Filtration Rate 76 mL/min (>60); Est Glom Filt Rate - Afr Amer 92 mL/min (>60); Estimated Creatinine Clearance 58.42 ml/min; Globulin 4.5 g/dL (2.2-4.2); Glucose 119 mg/dL (74-106); Protein, Total 7.4 g/dL (6.4-8.2); Sodium Level 132 mmol/L (136-145)
[2024-03-26] MEDS: 0.9% Normal Saline (1000mL) 1,000 ML 999 ML IV ×2 (14:23→15:46)
--- NOTE | 2024-03-26 14:31 | EDS_ITS ---
HPI History of Present Illness Chief Complaint: Nausea/Vomiting Narrative Narrative: Patient is a 59-year-old female with past medical history of lung cancer, hypertension, hyperlipidemia who presents to the emerged part with chief complaint of nausea vomiting and not feeling well for approximately 4 days. Patient states that starting about 4 days ago she developed nausea vomiting and some abdominal pain. Patient denies any recent sick contacts. Patient states that her symptoms have worsened which prompted her to come here for the valuation management today. Patient states that her last chemotherapy treatment was about 3 weeks ago. Patient states that she has been having some coughing as well with sputum production PFSH [facility] Medical History MCTD (mixed connective tissue disease) Breast cancer Anxiety Hyperlipemia HTN (hypertension) Home Medications ?Medication ?Instructions ?Recorded ?Last Taken ?Type carvedilol 12.5 mg tablet 12.5 mg PO BID 11/28/20 Unknown History ropinirole 1 mg tablet 1 mg PO QHS 11/28/20 Unknown History dextroamphetamine-amphetamine ER 1 cap PO DAILY 12/17/21 Unknown History 20 mg 24hr capsule,extend release alprazolam 0.5 mg tablet 0.5 mg PO BID PRN PRN Anxiety 09/13/22 Unknown History gabapentin 100 mg capsule 50 mg PO TID 09/13/22 Unknown History lisinopril 20 1 tab PO DAILY #30 tabs 09/13/22 Unknown Rx mg-hydrochlorothiazide 12.5 mg tablet naproxen 500 mg tablet 500 mg PO BID PRN PRN Pain 09/13/22 Unknown History albuterol sulfate 90 mcg/actuation 2 puff inhalation Q4H PRN PRN 03/16/24 Unknown History aerosol inhaler shortness of breath or wheezing buspirone 5 mg tablet 5 mg PO TID 03/16/24 Unknown History rosuvastatin 10 mg tablet 10 mg PO DAILY 03/16/24 Unknown History Allergy/AdvReac Type Severity Reaction Status Date / Time No Known Allergies Allergy Verified 03/26/24 12:00 Surgical History History of tubal ligation History of cholecystectomy Status post ORIF of fracture of ankle History of bilateral mastectomy Social History household members: spouse Smoking Status: Former smoker ROS ROS ED ROS Narrative Constitutional: Complains of fever and chills denies any headaches, lightheadedness, dizziness Eyes: Denies change in vision double vision blurry vision Cardiovascular: Denies chest pain or palpitations Respiratory: Complains of coughing as noted above Abdomen: Complains of abdominal pain nausea vomiting as noted above and diarrhea : Denies any painful urination, hematuria, polyuria Neurological: Denies numbness, weakness, tingling Musculoskeletal: Denies back pain Skin: Denies rashes or lesions EXAM Physical Exam Narrative Exam Narrative: General: Patient was lying in bed rest comfortably did not appear to be in acute distress Head: Atraumatic, normocephalic Eyes: PERRL bilateral, EOMI bilateral, no conjunctival injection noted Neck: Soft, supple, trachea midline Cardiovascular: Regular rate and rhythm no murmurs gallops rubs noted Respiratory: Clear to auscultation bilaterally no rales rhonchi or wheeze noted Abdomen: Soft, nondistended, tenderness palpation in the right lower quadrant no rebound or guarding on exam, bowel sounds present x 4 Extremities: +5/5 strength noted in the bilateral upper and lower extremities, radial pulses +2/4 in the bilateral upper extremities Neurological: Patient following commands knew that she was at [facility] year is 2023 Skin: Warm, dry, intact Const Vital Signs: 03/26/24 12:00 03/26/24 14:00 03/26/24 14:01 Temperature 98.3 F 99.2 F H Temperature Source Oral Oral Pulse Rate 103 H 103 H Respiratory Rate 18 17 Blood Pressure 139/84 H 124/63 H Blood Pressure Mean 102 83 Pulse Ox 100 99 99 Oxygen Delivery Method Room Air Room Air Room Air 03/26/24 15:00 03/26/24 15:47 03/26/24 16:50 Temperature 99.6 F H 99.7 F H 97.2 F L Temperature Source Oral Oral Temporal Pulse Rate 102 H 96 93 Respiratory Rate 18 18 18 Blood Pressure 110/65 119/65 124/73 H Blood Pressure Mean 80 83 90 Pulse Ox 97 100 100 Oxygen Delivery Method Room Air Room Air Room Air 03/26/24 18:00 03/26/24 18:00 Temperature 97.9 F Temperature Source Temporal Pulse Rate 90 96 Respiratory Rate 18 18 Blood Pressure 128/72 H 128/72 H Blood Pressure Mean 90 90 Pulse Ox 100 100 Oxygen Delivery Method Room Air Room Air MDM MDM MDM Narrative Medical decision making narrative: Patient is a 59-year-old female who presents to the emerged part with chief complaint of nausea vomiting and abdominal pain. Patient well the workup performed here on the differential diagnose includes but not limited to viral gastroenteritis, appendicitis, UTI, COVID, flu. Once workup is obtained reviewed she will be reevaluated. Patient given IV fluids, Zofran. Patient's CBC was significant for leukocytosis of 15,000, hemoglobin 6.9, plate count normal 163. Patient's sodium was 132, potassium was low at 3 she will be given 40 mill equivalents of oral potassium replacement here, creatinine was noted be normal at 0.82. Patient's urinalysis did not reveal any evidence of infection however there was noted to be 25 leukocyte esterase with 1+ bacteria this was sent for culture and she does not have any urinary symptoms. Patient CT abdomen pelvis with IV contrast was reviewed and showed fluid-filled loops of small bowel which may represent enteritis no acute abnormalities identified otherwise. Patient's chest x-ray was reviewed by myself and by radiology and showed a right upper lobe pneumonia she will be given Rocephin and azithromycin. Did discuss results with the patient at this point time do believe she will warrant admission to the hospital given her history of lung cancer and a significant pneumonia on her chest x-ray Rectal exam performed was brown however this will be sent for studies. Did discuss case with hospitalist Dr. Butcher who accept patient for admission. Did notify the patient and she is agreeable this plan all question concerns answered at bedside. Lab Data Labs: Laboratory Results - last 24 hr 03/26/24 03/26/24 03/26/24 13:41 13:41 13:41 WBC 15.1 H RBC 2.22 L Hgb 6.9 L Hct 20.8 L MCV 93.7 MCH 31.1 MCHC 33.2 RDW Std Deviation 55.4 H RDW Coeff of Citlaly 17.1 H Plt Count 163 MPV 10.3 Immature Gran % (Auto) 1.600 H Neut % (Auto) 81.7 H Lymph % (Auto) 2.7 L [place] % (Auto) 13.9 H Eos % (Auto) 0.0 Baso % (Auto) 0.1 Absolute Neuts (auto) 12.3 H Absolute Lymphs (auto) 0.40 L Nucleated RBC % 0 Differential Comment COMMENT Diff Path Review May foll PT 16.6 H INR 1.3 APTT 35.5 Sodium 132 L Cancelled Potassium 3.0 L Cancelled Chloride 96 L Carbon Dioxide Anion Gap BUN Creatinine Estim Creat Clear Calc Est GFR (MDRD) Af Amer Est GFR (MDRD) Non-Af BUN/Creatinine Ratio Glucose Lactic Acid Calcium Magnesium Total Bilirubin AST ALT Alkaline Phosphatase Troponin I High Sens Total Protein Albumin Globulin Albumin/Globulin Ratio Urine Color Urine Clarity Urine pH Ur Specific [place] Urine Protein Urine Glucose (UA) Urine Ketones Urine Occult Blood Urine Nitrite Urine Bilirubin Urine Urobilinogen Ur Leukocyte Esterase Urine RBC Urine WBC Ur Squamous Epith Cells Urine Bacteria Urine Mucus Crossmatch 03/26/24 03/26/24 03/26/24 13:41 13:41 13:41 WBC RBC Hgb Hct MCV MCH MCHC RDW Std Deviation RDW Coeff of Citlaly Plt Count MPV Immature Gran % (Auto) Neut % (Auto) Lymph % (Auto) [place] % (Auto) Eos % (Auto) Baso % (Auto) Absolute Neuts (auto) Absolute Lymphs (auto) Nucleated RBC % Differential Comment Diff Path Review PT INR APTT Sodium Potassium Chloride Cancelled Carbon Dioxide 25.0 Cancelled Anion Gap 11 Cancelled BUN 14 Creatinine Estim Creat Clear Calc Est GFR (MDRD) Af Amer Est GFR (MDRD) Non-Af BUN/Creatinine Ratio Glucose Lactic Acid Calcium Magnesium Total Bilirubin AST ALT Alkaline Phosphatase Troponin I High Sens Total Protein Albumin Globulin Albumin/Globulin Ratio Urine Color Urine Clarity Urine pH Ur Specific [place] Urine Protein Urine Glucose (UA) Urine Ketones Urine Occult Blood Urine Nitrite Urine Bilirubin Urine Urobilinogen Ur Leukocyte Esterase Urine RBC Urine WBC Ur Squamous Epith Cells Urine Bacteria Urine Mucus Crossmatch 03/26/24 03/26/24 03/26/24 13:41 13:41 13:41 WBC RBC Hgb Hct MCV MCH MCHC RDW Std Deviation RDW Coeff of Citlaly Plt Count MPV Immature Gran % (Auto) Neut % (Auto) Lymph % (Auto) [place] % (Auto) Eos % (Auto) Baso % (Auto) Absolute Neuts (auto) Absolute Lymphs (auto) Nucleated RBC % Differential Comment Diff Path Review PT INR APTT Sodium Potassium Chloride Carbon Dioxide Anion Gap BUN Cancelled Creatinine 0.82 Cancelled Estim Creat Clear Calc 58.42 Cancelled Est GFR (MDRD) Af Amer 92 Est GFR (MDRD) Non-Af BUN/Creatinine Ratio Glucose Lactic Acid Calcium Magnesium Total Bilirubin AST ALT Alkaline Phosphatase Troponin I High Sens Total Protein Albumin Globulin Albumin/Globulin Ratio Urine Color Urine Clarity Urine pH Ur Specific [place] Urine Protein Urine Glucose (UA) Urine Ketones Urine Occult Blood Urine Nitrite Urine Bilirubin Urine Urobilinogen Ur Leukocyte Esterase Urine RBC Urine WBC Ur Squamous Epith Cells Urine Bacteria Urine Mucus Crossmatch 03/26/24 03/26/24 03/26/24 13:41 13:41 13:41 WBC RBC Hgb Hct MCV MCH MCHC RDW Std Deviation RDW Coeff of Citlaly Plt Count MPV Immature Gran % (Auto) Neut % (Auto) Lymph % (Auto) [place] % (Auto) Eos % (Auto) Baso % (Auto) Absolute Neuts (auto) Absolute Lymphs (auto) Nucleated RBC % Differential Comment Diff Path Review PT INR APTT Sodium Potassium Chloride Carbon Dioxide Anion Gap BUN Creatinine Estim Creat Clear Calc Est GFR (MDRD) Af Amer Cancelled Est GFR (MDRD) Non-Af 76 Cancelled BUN/Creatinine Ratio 17.1 Cancelled Glucose 119 H Lactic Acid Calcium Magnesium Total Bilirubin AST ALT Alkaline Phosphatase Troponin I High Sens Total Protein Albumin Globulin Albumin/Globulin Ratio Urine Color Urine Clarity Urine pH Ur Specific [place] Urine Protein Urine Glucose (UA) Urine Ketones Urine Occult Blood Urine Nitrite Urine Bilirubin Urine Urobilinogen Ur Leukocyte Esterase Urine RBC Urine WBC Ur Squamous Epith Cells Urine Bacteria Urine Mucus Crossmatch 03/26/24 03/26/24 03/26/24 13:41 13:41 13:41 WBC RBC Hgb Hct MCV MCH MCHC RDW Std Deviation RDW Coeff of Citlaly Plt Count MPV Immature Gran % (Auto) Neut % (Auto) Lymph % (Auto) [place] % (Auto) Eos % (Auto) Baso % (Auto) Absolute Neuts (auto) Absolute Lymphs (auto) Nucleated RBC % Differential Comment Diff Path Review PT INR APTT Sodium Potassium Chloride Carbon Dioxide Anion Gap BUN Creatinine Estim Creat Clear Calc Est GFR (MDRD) Af Amer Est GFR (MDRD) Non-Af BUN/Creatinine Ratio Glucose Cancelled Lactic Acid Calcium 9.0 Cancelled Magnesium 1.4 L Total Bilirubin 1.30 H Cancelled AST 16 ALT Alkaline Phosphatase Troponin I High Sens Total Protein Albumin Globulin Albumin/Globulin Ratio Urine Color Urine Clarity Urine pH Ur Specific [place] Urine Protein Urine Glucose (UA) Urine Ketones Urine Occult Blood Urine Nitrite Urine Bilirubin Urine Urobilinogen Ur Leukocyte Esterase Urine RBC Urine WBC Ur Squamous Epith Cells Urine Bacteria Urine Mucus Crossmatch 03/26/24 03/26/24 03/26/24 13:41 13:41 13:41 WBC RBC Hgb Hct MCV MCH MCHC RDW Std Deviation RDW Coeff of Citlaly Plt Count MPV Immature Gran % (Auto) Neut % (Auto) Lymph % (Auto) [place] % (Auto) Eos % (Auto) Baso % (Auto) Absolute Neuts (auto) Absolute Lymphs (auto) Nucleated RBC % Differential Comment Diff Path Review PT INR APTT Sodium Potassium Chloride Carbon Dioxide Anion Gap BUN Creatinine Estim Creat Clear Calc Est GFR (MDRD) Af Amer Est GFR (MDRD) Non-Af BUN/Creatinine Ratio Glucose Lactic Acid Calcium Magnesium Total Bilirubin AST Cancelled ALT 18 Cancelled Alkaline Phosphatase 87 Cancelled Troponin I High Sens 13 Total Protein 7.4 Albumin Globulin Albumin/Globulin Ratio Urine Color Urine Clarity Urine pH Ur Specific [place] Urine Protein Urine Glucose (UA) Urine Ketones Urine Occult Blood Urine Nitrite Urine Bilirubin Urine Urobilinogen Ur Leukocyte Esterase Urine RBC Urine WBC Ur Squamous Epith Cells Urine Bacteria Urine Mucus Crossmatch 03/26/24 03/26/24 03/26/24 13:41 13:41 13:41 WBC RBC Hgb Hct MCV MCH MCHC RDW Std Deviation RDW Coeff of Citlaly Plt Count MPV Immature Gran % (Auto) Neut % (Auto) Lymph % (Auto) [place] % (Auto) Eos % (Auto) Baso % (Auto) Absolute Neuts (auto) Absolute Lymphs (auto) Nucleated RBC % Differential Comment Diff Path Review PT INR APTT Sodium Potassium Chloride Carbon Dioxide Anion Gap BUN Creatinine Estim Creat Clear Calc Est GFR (MDRD) Af Amer Est GFR (MDRD) Non-Af BUN/Creatinine Ratio Glucose Lactic Acid Calcium Magnesium Total Bilirubin AST ALT Alkaline Phosphatase Troponin I High Sens Total Protein Cancelled Albumin 2.9 L Cancelled Globulin 4.5 H Cancelled Albumin/Globulin Ratio 0.6 L Urine Color Urine Clarity Urine pH Ur Specific [place] Urine Protein Urine Glucose (UA) Urine Ketones Urine Occult Blood Urine Nitrite Urine Bilirubin Urine Urobilinogen Ur Leukocyte Esterase Urine RBC Urine WBC Ur Squamous Epith Cells Urine Bacteria Urine Mucus Crossmatch 03/26/24 03/26/24 03/26/24 13:41 14:10 14:27 WBC RBC Hgb Hct MCV MCH MCHC RDW Std Deviation RDW Coeff of Citlaly Plt Count MPV Immature Gran % (Auto) Neut % (Auto) Lymph % (Auto) [place] % (Auto) Eos % (Auto) Baso % (Auto) Absolute Neuts (auto) Absolute Lymphs (auto) Nucleated RBC % Differential Comment Diff Path Review PT INR APTT Sodium Potassium Chloride Carbon Dioxide Anion Gap BUN Creatinine Estim Creat Clear Calc Est GFR (MDRD) Af Amer Est GFR (MDRD) Non-Af BUN/Creatinine Ratio Glucose Lactic Acid 1.0 Calcium Magnesium Total Bilirubin AST ALT Alkaline Phosphatase Troponin I High Sens Total Protein Albumin Globulin Albumin/Globulin Ratio Cancelled Urine Color Yellow Urine Clarity Sl. Cloudy Urine pH 6.0 Ur Specific [place] 1.020 Urine Protein 100 H Urine Glucose (UA) Normal Urine Ketones 5 H Urine Occult Blood 250 H Urine Nitrite Negative Urine Bilirubin Negative Urine Urobilinogen 4 H Ur Leukocyte Esterase 25 H Urine RBC 5-10 SEEN Urine WBC 0-5 SEEN Ur Squamous Epith Cells 0-5 SEEN Urine Bacteria 1+ Urine Mucus 0 SEEN Crossmatch 03/26/24 18:05 WBC RBC Hgb Hct MCV MCH MCHC RDW Std Deviation RDW Coeff of Citlaly Plt Count MPV Immature Gran % (Auto) Neut % (Auto) Lymph % (Auto) [place] % (Auto) Eos % (Auto) Baso % (Auto) Absolute Neuts (auto) Absolute Lymphs (auto) Nucleated RBC % Differential Comment Diff Path Review PT INR APTT Sodium Potassium Chloride Carbon Dioxide Anion Gap BUN Creatinine Estim Creat Clear Calc Est GFR (MDRD) Af Amer Est GFR (MDRD) Non-Af BUN/Creatinine Ratio Glucose Lactic Acid Calcium Magnesium Total Bilirubin AST ALT Alkaline Phosphatase Troponin I High Sens Total Protein Albumin Globulin Albumin/Globulin Ratio Urine Color Urine Clarity Urine pH Ur Specific [place] Urine Protein Urine Glucose (UA) Urine Ketones Urine Occult Blood Urine Nitrite Urine Bilirubin Urine Urobilinogen Ur Leukocyte Esterase Urine RBC Urine WBC Ur Squamous Epith Cells Urine Bacteria Urine Mucus Crossmatch See Detail Radiography Diagnostic Testing: Clinical Impression(s) from Imaging Studies Abdomen/Pelvis CT 03/26/24 14:01 IMPRESSION: Fluid-filled loops of small bowel which may represent enteritis. No other acute abnormalities are identified. Electronically Signed: Julio César Rey MD at 16:42 EDT , Chest X-Ray 03/26/24 16:20 IMPRESSION: Right upper lobe pneumonia. Electronically Signed: Julio César Rey MD at 16:51 EDT , Discharge Plan Triage Chief Complaint: Nausea/Vomiting ED Provider: Hima Corona Dx/Rx/DC Orders Clinical Impression: Pneumonia, Anemia, Nausea & vomiting Prescriptions: No Action carvedilol 12.5 mg Tablet 12.5 mg PO BID ropinirole 1 mg Tablet 1 mg PO QHS dextroamphetamine-amphetamine 20 mg capsule,extended release 24hr 1 cap PO DAILY Patient Comments: TAKE 1 CAPSULE BY MOUTH ONCE DAILY IN THE MORNING alprazolam 0.5 mg tablet 0.5 mg PO BID PRN PRN (Reason: Anxiety) gabapentin 100 mg capsule 50 mg PO TID Patient Comments: Take 1 capsule by mouth three times daily for 90 days. naproxen 500 mg tablet 500 mg PO BID PRN PRN (Reason: Pain) lisinopril-hydrochlorothiazide 20-12.5 mg tablet 1 tab PO DAILY Qty: 30 0RF buspirone 5 mg tablet 5 mg PO TID rosuvastatin 10 mg tablet 10 mg PO DAILY albuterol sulfate 90 mcg/actuation HFA aerosol inhaler 2 puff inhalation Q4H PRN PRN (Reason: shortness of breath or wheezing) Primary Care Provider: Yanet Chance Referrals: Yanet Chance MD [Primary Care Provider] - Print Language: Portuguese
[2024-03-26 14:32] LABS: Mucous, Urine 0 SEEN /hpf (<or=2+)
[2024-03-26 14:34] LABS: Color, Urine Yellow (Yellow); Glucose, Dipstick Normal (Normal); Ketone-Dipstick 5 mg/dl (Negative); Leukocyte Esterase-Dipstick 25 /ul (Negative); Nitrite-Dipstick Negative (Negative); Occult Blood-Urine 250 /ul (Negative); Protein-Dipstick 100 mg/dl (Negative); Urine Bilirubin Dipstick Negative (Negative); Urine Clarity Sl. Cloudy (Clear); Urine Urobilinogen 4 mg/dl (Normal)
[2024-03-26] MEDS: Morphine 4 MG/ML Syringe IV (14:40)
[2024-03-26] MEDS: Ondansetron 4 MG/2 ML Vial IV ×2 (14:40→19:58)
[2024-03-26 14:42] LABS: International Normalized Ratio 1.3; Prothrombin Time (Protime)PT. 16.6 SECONDS (11.7-14.9)
[2024-03-26 14:50] LABS: Troponin-I HS 13 pg/mL (3.0-54.0)
[2024-03-26 14:55] LABS: Partial Thromboplast Time 35.5 Seconds (24.1-36.2)
[2024-03-26 14:56] LABS: Bacteria 1+ /hpf (None Seen); Red Blood Cells-Urine 5-10 SEEN /hpf (0-5); White Blood Cells 0-5 SEEN /hpf (0-5)
[2024-03-26 14:58] LABS: Squamous Epithelial Cells - UA 0-5 SEEN /hpf (5-10)
--- NOTE | 2024-03-26 16:20 | RAD_ITS ---
EXAM: XR CHEST, 2 VIEWS CLINICAL INDICATION: cough, hx of lung cancer TECHNIQUE: Frontal and lateral views of the chest. COMPARISON: 09/13/2022 FINDINGS: LUNGS AND PLEURAL SPACES: There is right upper lobe airspace disease which may represent pneumonia. No pneumothorax. No effusion. HEART: Unremarkable. Cardiac silhouette not enlarged. MEDIASTINUM: Central airways and mediastinal contour are unremarkable. BONES/JOINTS: Unremarkable. No acute fracture. SOFT TISSUES: Unremarkable. RAD/Chest PA and Lateral IMPRESSION: Right upper lobe pneumonia. Electronically Signed: Julio César Rey MD at 16:51 EDT ,
[2024-03-26] MEDS: Acetaminophen 500 MG Tablet 1000 MG PO (17:32)
[2024-03-26] MEDS: Ceftriaxone 1 GM/50 ML BAG IV (17:33)
[2024-03-26 18:32] LABS: Magnesium 1.4 mg/dL (1.6-2.6)
[2024-03-26] MEDS: Azithromycin 500 MG in Dextrose 5%-Water (250mL Bag) 250 ML 250 MG IV (18:33)
[2024-03-26 19:06] LABS: Ferritin 1146 ng/mL (8-252); Iron Binding Capacity,Total 212 ug/dL (250-450)
--- NOTE | 2024-03-26 19:15 | HP.PCM.HOS_ITS ---
HPI - General General Date of Admission: 03/26/24 Date of Service: 03/26/24 Chief Complaint: Intractable n/v HPI Narrative VICENTE FONTANEZ, is a 59 F with right sided lung cancer status post chemo and radiation yet to start immunotherapy, anxiety, lupus, hypertension presented [facility] ED 03/26/2024 with intractable nausea and vomiting. Patient reports she has been nauseous for 4 days, also has had a cough with increased sputum production and some increased shortness of breath. She began to have diarrhea today, given that she is not improving she presented to the ED. In the ED she was found to have possible enteritis and also chest x-ray concerning for pneumonia so she was given antibiotics and hospitalist contacted for admission. Additionally patient found to have a hemoglobin of 6.9 and was transfused 1 unit. Patient evaluated at bedside, she reports she has had intermittent nausea her whole life more so off and on the past 4 months for the past 4 days has been intractable and significant, her last chemo was 3 weeks ago and she is done with that has not yet started immunotherapy. Denies any abdominal pain at this time reports she did start having diarrhea this morning. When asking about lung symptoms she does endorse increased cough productive of sputum and increased shortness of breath over the past several days as well. She denies any blood in her stool and on further discussion she required a transfusion of packed red blood cells about a week ago and it was felt that her anemia has been cancer related. Has not measured any fevers but has alternated between chills and hot flashes over the past 4 days. No changes in urination [facility] Medical History MCTD (mixed connective tissue disease) Breast cancer Anxiety Hyperlipemia HTN (hypertension) Home Medications ?Medication ?Instructions ?Recorded ?Last Taken ?Type carvedilol 12.5 mg tablet 12.5 mg PO BID 11/28/20 Unknown History ropinirole 1 mg tablet 1 mg PO QHS 11/28/20 Unknown History dextroamphetamine-amphetamine ER 1 cap PO DAILY 12/17/21 Unknown History 20 mg 24hr capsule,extend release alprazolam 0.5 mg tablet 0.5 mg PO BID PRN PRN Anxiety 09/13/22 Unknown History gabapentin 100 mg capsule 50 mg PO TID 09/13/22 Unknown History lisinopril 20 1 tab PO DAILY #30 tabs 09/13/22 Unknown Rx mg-hydrochlorothiazide 12.5 mg tablet naproxen 500 mg tablet 500 mg PO BID PRN PRN Pain 09/13/22 Unknown History albuterol sulfate 90 mcg/actuation 2 puff inhalation Q4H PRN PRN 03/16/24 Unknown History aerosol inhaler shortness of breath or wheezing buspirone 5 mg tablet 5 mg PO TID 03/16/24 Unknown History rosuvastatin 10 mg tablet 10 mg PO DAILY 03/16/24 Unknown History Allergy/AdvReac Type Severity Reaction Status Date / Time No Known Allergies Allergy Verified 03/26/24 12:00 Surgical History History of tubal ligation History of cholecystectomy Status post ORIF of fracture of ankle History of bilateral mastectomy Social History household members: spouse Smoking Status: Former smoker ROS ROS Narrative General: Alternating between hot sweats and chills but no measured fever HENT has had some headache, denies stuffy nose, intermittent sore throat which she thinks may be due to nausea or vomiting EYES: Denies changes in vision Resp: Increased cough with increased pedal production and increased shortness of breath over the past several days Cardiac: Denies chest pain GI: Denies abdominal pain, intractable nausea and vomiting with poor p.o. intake, diarrhea x 1 day : Denies changes in urination Extremity: Denies swelling MSK: Generalized weakness Neuro: Denies any numbness/tingling Heme: Denies any bleeding or bruising Skin: Denies rashes Psychiatric: No complaints voiced Vital Signs Vital Signs Vital Signs: 03/26/24 12:00 03/26/24 14:00 03/26/24 14:01 Temperature 98.3 F 99.2 F H Temperature Source Oral Oral Pulse Rate 103 H 103 H Respiratory Rate 18 17 Blood Pressure 139/84 H 124/63 H Blood Pressure Mean 102 83 Pulse Ox 100 99 99 Oxygen Delivery Method Room Air Room Air Room Air 03/26/24 15:00 03/26/24 15:47 03/26/24 16:50 Temperature 99.6 F H 99.7 F H 97.2 F L Temperature Source Oral Oral Temporal Pulse Rate 102 H 96 93 Respiratory Rate 18 18 18 Blood Pressure 110/65 119/65 124/73 H Blood Pressure Mean 80 83 90 Pulse Ox 97 100 100 Oxygen Delivery Method Room Air Room Air Room Air 03/26/24 18:00 03/26/24 18:00 Temperature 97.9 F Temperature Source Temporal Pulse Rate 90 96 Respiratory Rate 18 18 Blood Pressure 128/72 H 128/72 H Blood Pressure Mean 90 90 Pulse Ox 100 100 Oxygen Delivery Method Room Air Room Air Weight Weight: 57.7 kg Body Mass Index (BMI) 23.2 Physical Exam Narrative General: Alert, oriented, appears to does feel unwell HEENT: Atraumatic, normocephalic Eyes: Anicteric, normal conjunctiva, extraocular movements grossly intact Neck: Supple Respiratory: Normal respiratory effort, somewhat more coarse on upper right Cardiovascular: Regular rate and rhythm GI: Soft, no significant tenderness, no rebound, guarding, rigidity Extremities: No edema Musculoskeletal: Moving all extremities Neuro: No overt focal neurological deficits Skin: No rashes appreciated Psych: Cooperative Results Lab / Micro Data 03/26/24 13:41 03/26/24 13:41 Labs: Laboratory Results - last 24 hr 03/26/24 13:41: WBC 15.1 H, RBC 2.22 L, Hgb 6.9 L, Hct 20.8 L, MCV 93.7, MCH 31.1, MCHC 33.2, RDW Std Deviation 55.4 H, RDW Coeff of Citlaly 17.1 H, Plt Count 163, MPV 10.3, Immature Gran % (Auto) 1.600 H, Neut % (Auto) 81.7 H, Lymph % (Auto) 2.7 L, [place] % (Auto) 13.9 H, Eos % (Auto) 0.0, Baso % (Auto) 0.1, A bsolute Neuts (auto) 12.3 H, Absolute Lymphs (auto) 0.40 L, Nucleated RBC % 0, Differential Comment COMMENT, Diff Path Review November, PT 16.6 H, INR 1.3, APTT 35.5, Sodium 132 L 03/26/24 13:41: Sodium Cancelled, Potassium 3.0 L 03/26/24 13:41: Potassium Cancelled, Chloride 96 L 03/26/24 13:41: Chloride Cancelled, Carbon Dioxide 25.0 03/26/24 13:41: Carbon Dioxide Cancelled, Anion Gap 11 03/26/24 13:41: Anion Gap Cancelled, BUN 14 03/26/24 13:41: BUN Cancelled, Creatinine 0.82 03/26/24 13:41: Creatinine Cancelled, Estim Creat Clear Calc 58.42 03/26/24 13:41: Estim Creat Clear Calc Cancelled, Est GFR (MDRD) Af Amer 92 03/26/24 13:41: Est GFR (MDRD) Af Amer Cancelled, Est GFR (MDRD) Non-Af 76 03/26/24 13:41: Est GFR (MDRD) Non-Af Cancelled, BUN/Creatinine Ratio 17.1 03/26/24 13:41: BUN/Creatinine Ratio Cancelled, Glucose 119 H 03/26/24 13:41: Glucose Cancelled, Calcium 9.0 03/26/24 13:41: Calcium Cancelled, Magnesium 1.4 L, TIBC 212 L, Ferritin 1146 H, Total Bilirubin 1.30 H 03/26/24 13:41: Total Bilirubin Cancelled, AST 16 03/26/24 13:41: AST Cancelled, ALT 18 03/26/24 13:41: ALT Cancelled, Alkaline Phosphatase 87 03/26/24 13:41: Alkaline Phosphatase Cancelled, Troponin I High Sens 13, Total Protein 7.4 03/26/24 13:41: Total Protein Cancelled, Albumin 2.9 L 03/26/24 13:41: Albumin Cancelled, Globulin 4.5 H 03/26/24 13:41: Globulin Cancelled, Albumin/Globulin Ratio 0.6 L 03/26/24 13:41: Albumin/Globulin Ratio Cancelled 03/26/24 14:10: Lactic Acid 1.0 03/26/24 14:27: Urine Color Yellow, Urine Clarity Sl. Cloudy, Urine pH 6.0, Ur Specific [place] 1.020, Urine Protein 100 H, Urine Glucose (UA) Normal, Urine Ketones 5 H, Urine Occult Blood 250 H, Urine Nitrite Negative, Urine Bilirubin Negative, Urine Urobilinogen 4 H, Ur Leukocyte Esterase 25 H, Urine RBC 5-10 SEEN, Urine WBC 0-5 SEEN, Ur Squamous Epith Cells 0-5 SEEN, Urine Bacteria 1+, Urine Mucus 0 SEEN 03/26/24 18:05: Crossmatch See Detail Micro: Microbiology 03/26/24 14:15 Mucosa - Nose SARS-CoV-2, Influenza & RSV (PCR) - Final Imaging Radiology Impression Abdomen/Pelvis CT 03/26/24 14:01 IMPRESSION: Fluid-filled loops of small bowel which may represent enteritis. No other acute abnormalities are identified. Electronically Signed: Julio César Rey MD at 16:42 EDT , Chest X-Ray 03/26/24 16:20 IMPRESSION: Right upper lobe pneumonia. Electronically Signed: Julio César Rey MD at 16:51 EDT , Assessment & Plan Assessment/Plan (1) Nausea & vomiting: PLAN: Plan #Intractable n/v/d -Possibly due to enteritis seen on CT -Supportive care with antiemetics -IV fluids -Will check stool studies -Also check viral panel -Will start with liquid diet and advance as tolerated #Community-acquired pneumonia -Imaging: Chest x-ray suggestive of right upper lobe pneumonia, patient does report lung cancer on right side but given increased shortness of breath, productive cough, white blood cell count of 15.1 with sweats and chills at home do feel patient warrants treatment -DuoNebs and as needed albuterol -Sputum culture, COVID and viral panels ordered -Urine antigens -Mucinex, I/S -Levaquin # Anemia -Hemoglobin 6.9 -Last hemoglobin 3 months ago in our system 13.1 however patient then endorsed she received a blood transfusion last week and that she has been having low blood counts which have been suspected to be due to her cancer -Did have rectal in ED without overt blood, FOBT pending -Patient to receive 1 unit packed red blood cells, no active bleeding noted at this time # Hypomagnesemia/hypokalemia -Suspect secondary to poor p.o. and diarrhea -Replaced in ED # Right sided lung cancer -f/w Dr. Page -S/p chemo and radiation last chemo 3 weeks ago -Will be initiated on immunotherapy per patient # Hypertension -Awaiting medication verification, resume home medications once this is available #DVT ppx: Lovenox subcu Barbara Butcher MD Charges/Coding Visit Charges Inpatient E&M: 09718 Init Hosp L2
[2024-03-26] MEDS: Potassium Chloride 10mEq/100mL 10 MEQ/100 ML IV.SOLN. 100 MEQ IV BOLUS (21:00)
[2024-03-26] MEDS: Pramipexole Di-HCl 0.5 MG Tablet PO (23:50)
[2024-03-26] MEDS: ALPRAZolam 0.5 MG Tablet PO (23:50)
[2024-03-27] VITALS (14 sets, daily range): BP systolic 116–127; BP diastolic 68–78; PULSE 77–95; RESP 15–17; TEMP 36.3–37.1; O2SAT 94–98
[2024-03-27] MEDS: Magnesium Sulfate 4gm/100mL 4 GM/100 ML IV.SOLN. IV (00:11)
[2024-03-27] MEDS: Potassium Chloride 10mEq/100mL 10 MEQ/100 ML IV.SOLN. 100 MEQ IV BOLUS ×3 (00:12→03:29)
[2024-03-27] MEDS: 0.9% Normal Saline (1000mL) 1,000 ML 50 ML IV (00:12)
[2024-03-27 06:39] LABS: Absolute Lymphocyte Count 0.28 X10^3/uL (0.83-4.51); Absolute Neutrophil Count 6.9 X10^3/uL (2.0-7.7); Basophil# 0.01 X10^3/uL; Basophil% 0.1 % (0-1); Hematocrit 22.7 % (37-47); Hemoglobin 7.6 g/dL (12.0-15.0); Lymphocyte # 0.28 X10^3/ul (0.83-4.51); Lymphocyte % 3.3 % (19-41); Mean Corp Hgb Conc 33.5 g/dL (32-36); Mean Corpuscular Volume 92.7 fL (81-99); Mean Platelet Vol. 9.8 fl (6.2-12.0); Monocyte# 1.11 X10^3/uL; Monocyte% 13.1 % (0-10); NRBC Flagged by Analyzer 0 % (0-5); Neutrophil # 6.94 X10^3/uL (2.7-7.7); Neutrophil % 82.2 % (47-70); POSITIVE DIFFERENTIAL YES; Platelet Count 136 K/mm3 (150-450); RBC Distribution Width CV 16.6 % (11.6-14.6); RBC Distribution Width SD 53.5 fl (35.1-43.9); Red Blood Count 2.45 M/mm3 (4.2-5.4); White Blood Count 8.5 K/mm3 (4.4-11.0)
--- NOTE | 2024-03-27 07:52 | PN.HOSP_ITS ---
Reason for Visit Reason for Visit: Diagnoses Nausea with vomiting, unspecified (03/26/24) Subjective Subjective No further diarrhea today. Objective Data Objective Data Vital Signs: Vital Signs Temp Pulse Resp BP Pulse Ox O2 Del Method 36.7 C 81 15 124/68 H 96 Room Air 03/27/24 04:00 03/27/24 04:00 03/27/24 04:00 03/27/24 04:00 03/27/24 04:00 03/27/24 04:35 Oxygen Delivery Method Room Air Weight: 60 kg Body Mass Index (BMI) 24.2 Intake & Output: Intake and Output for Last 24 Hours 03/25/24 03/26/24 03/27/24 23:59 23:59 23:59 Intake Total 2905 / 2905 400 / 400 Output Total 700 / 700 Balance 2905 / 2905 -300 / -300 Lab / Micro Data 03/27/24 06:18 03/27/24 06:18 Labs: Laboratory Results - last 24 hr 03/26/24 13:41: WBC 15.1 H, RBC 2.22 L, Hgb 6.9 L, Hct 20.8 L, MCV 93.7, MCH 31.1, MCHC 33.2, RDW Std Deviation 55.4 H, RDW Coeff of Citlaly 17.1 H, Plt Count 163, MPV 10.3, Immature Gran % (Auto) 1.600 H, Neut % (Auto) 81.7 H, Lymph % (Auto) 2.7 L, [place] % (Auto) 13.9 H, Eos % (Auto) 0.0, Baso % (Auto) 0.1, A bsolute Neuts (auto) 12.3 H, Absolute Lymphs (auto) 0.40 L, Nucleated RBC % 0, Differential Comment COMMENT, Diff Path Review November, PT 16.6 H, INR 1.3, APTT 35.5, Sodium 132 L 03/26/24 13:41: Sodium Cancelled, Potassium 3.0 L 03/26/24 13:41: Potassium Cancelled, Chloride 96 L 03/26/24 13:41: Chloride Cancelled, Carbon Dioxide 25.0 03/26/24 13:41: Carbon Dioxide Cancelled, Anion Gap 11 03/26/24 13:41: Anion Gap Cancelled, BUN 14 03/26/24 13:41: BUN Cancelled, Creatinine 0.82 03/26/24 13:41: Creatinine Cancelled, Estim Creat Clear Calc 58.42 03/26/24 13:41: Estim Creat Clear Calc Cancelled, Est GFR (MDRD) Af Amer 92 03/26/24 13:41: Est GFR (MDRD) Af Amer Cancelled, Est GFR (MDRD) Non-Af 76 03/26/24 13:41: Est GFR (MDRD) Non-Af Cancelled, BUN/Creatinine Ratio 17.1 03/26/24 13:41: BUN/Creatinine Ratio Cancelled, Glucose 119 H 03/26/24 13:41: Glucose Cancelled, Calcium 9.0 03/26/24 13:41: Calcium Cancelled, Magnesium 1.4 L, TIBC 212 L, Ferritin 1146 H, Total Bilirubin 1.30 H 03/26/24 13:41: Total Bilirubin Cancelled, AST 16 03/26/24 13:41: AST Cancelled, ALT 18 03/26/24 13:41: ALT Cancelled, Alkaline Phosphatase 87 03/26/24 13:41: Alkaline Phosphatase Cancelled, Troponin I High Sens 13, Total Protein 7.4 03/26/24 13:41: Total Protein Cancelled, Albumin 2.9 L 03/26/24 13:41: Albumin Cancelled, Globulin 4.5 H 03/26/24 13:41: Globulin Cancelled, Albumin/Globulin Ratio 0.6 L 03/26/24 13:41: Albumin/Globulin Ratio Cancelled 03/26/24 14:10: Lactic Acid 1.0 03/26/24 14:27: Urine Color Yellow, Urine Clarity Sl. Cloudy, Urine pH 6.0, Ur Specific [place] 1.020, Urine Protein 100 H, Urine Glucose (UA) Normal, Urine Ketones 5 H, Urine Occult Blood 250 H, Urine Nitrite Negative, Urine Bilirubin Negative, Urine Urobilinogen 4 H, Ur Leukocyte Esterase 25 H, Urine RBC 5-10 SEEN, Urine WBC 0-5 SEEN, Ur Squamous Epith Cells 0-5 SEEN, Urine Bacteria 1+, Urine Mucus 0 SEEN 03/26/24 18:05: Blood Type A POSITIVE, Antibody Screen NEGATIVE, Crossmatch See Detail 03/27/24 06:18: WBC 8.5, RBC 2.45 L, Hgb 7.6 L, Hct 22.7 L, MCV 92.7, MCH 31.0, MCHC 33.5, RDW Std Deviation 53.5 H, RDW Coeff of Citlaly 16.6 H, Plt Count 136 L, MPV 9.8, Immature Gran % (Auto) 1.300 H, Neut % (Auto) 82.2 H, Lymph % (Auto) 3.3 L, [place] % (Auto) 13.1 H, Eos % (Auto) 0.0, Baso % (Auto) 0.1, Absolute Neuts (auto) 6.9, Absolute Lymphs (auto) 0.28 L, Nucleated RBC % 0 Micro: Microbiology 03/27/24 03:30 Nasal Secretion MRSA (PCR) - Final 03/27/24 03:30 Nasal Secretion SARS-CoV-2 Antigen (Rapid) - Final 03/26/24 23:35 Mucosa - Nasopharyngeal Respiratory Panel (PCR) - Final 03/26/24 14:27 Urine, Clean Catch Legionella Antigen - Final 03/26/24 14:27 Urine, Clean Catch Streptococcus pneumoniae Antigen (M - Final 03/26/24 18:30 Stool Stool Occult Blood (PUSHPA) - Final 03/26/24 14:15 Mucosa - Nose SARS-CoV-2, Influenza & RSV (PCR) - Final Radiography Diagnostic Testing: Radiology Impression Abdomen/Pelvis CT 03/26/24 14:01 IMPRESSION: Fluid-filled loops of small bowel which may represent enteritis. No other acute abnormalities are identified. Electronically Signed: Julio César Rey MD at 16:42 EDT , Chest X-Ray 03/26/24 16:20 IMPRESSION: Right upper lobe pneumonia. Electronically Signed: Julio César Rey MD at 16:51 EDT , Physical Exam Const alert and no apparent distress HEENT head/scalp atraumatic and moist oral mucous membranes Resp normal respiratory effort, no retractions, no use of accessory muscles and clear to auscultation bilaterally Cardio regular rate, regular rhythm, S1 normal heart sound and S2 normal heart sound GI normal to inspection, nondistended, normoactive bowel sounds, soft to palpation, non-tender and non-distended Extremity normal to inspection Neuro Sensorium / Orientation: awake and alert Psych affect normal Assessment & Plan Assessment/Plan (1) Nausea & vomiting: PLAN: Plan Acute enteritis * supportive mgmt. * check enteric panel. Suspected pneumococcal pneumonia * RUL infiltrate. Could be postobstructive as patient does have a right upper lobe mass and this infiltrate appears to be worse from December. * Antibiotics with levofloxacin * Follow-up pneumonia studies. * Pulmonary toilet. Mucinex. * Strep and Legionella antigens negative, respiratory panel negative, COVID-19, influenza and RSV negative Anemia * Hemoglobin 6.9 upon admission. Had previously been 13 back in December. Patient was transfused 1 unit and is currently 7.6. Normocytic parameters * Will monitor at this time. * Stool occult blood negative * This may be chemo induced Hypomagnesemia/hypokalemia * Replaced. Follow-up pending. * Suspect secondary to poor p.o. and diarrhea Right sided lung cancer * Unclear type. Patient follows with Dr. Page.-S/p chemo and radiation last chemo 3 weeks ago-Will be initiated on immunotherapy per patient VTE prophylaxis with enoxaparin Charges/Coding Visit Charges Inpatient E&M: 89334 Subs Hosp L2
[2024-03-27 08:09] LABS: ALB/GLOB Ratio 0.6 RATIO (0.9-2.4); AST(SGOT) 19 U/L (15-37); Alanine Aminotransfer ALT/SGPT 20 U/L (13-56); Albumin, Serum 2.3 g/dL (3.2-5.0); Alkaline Phosphatase 73 U/L (45-117); Anion Gap 6 (5-15); BUN 11 mg/dL (7-18); BUN/Creat Ratio 18.2 RATIO (10-20); Calcium,Total 8.6 mg/dL (8.5-10.1); Chloride 107 mmol/L (98-107); EST Glomerular Filtration Rate 108 mL/min (>60); Est Glom Filt Rate - Afr Amer 131 mL/min (>60); Estimated Creatinine Clearance 79.85 ml/min; Globulin 3.9 g/dL (2.2-4.2); Glucose 94 mg/dL (74-106); Magnesium 2.9 mg/dL (1.6-2.6); Phosphorus 2.3 mg/dL (2.5-4.9); Potassium 3.4 mmol/L (3.5-5.1); Protein, Total 6.2 g/dL (6.4-8.2); Sodium Level 136 mmol/L (136-145); Thyroid Stim Hormone (TSH) 0.389 uIU/mL (0.358-3.740)
[2024-03-27] MEDS: DULoxetine Hcl 60 MG Capsule PO (09:59)
[2024-03-27] MEDS: Enoxaparin 40 MG/0.4 ML Syringe SC (09:59)
[2024-03-27] MEDS: guaiFENesin 1,200 MG Tablet 1200 MG PO ×2 (09:59→21:00)
[2024-03-27] MEDS: Carvedilol 3.125 MG TABLET PO ×2 (09:59→20:59)
[2024-03-27] MEDS: Acetaminophen 325 MG Tablet 650 MG PO (10:10)
[2024-03-27] MEDS: levoFLOXacin IV 750 MG/150 ML BAG 100 MG IV (10:12)
[2024-03-27 11:42] LABS: Pathologist Review Reviewed
[2024-03-27] MEDS: busPIRone 5 MG Tablet PO (14:32)
[2024-03-27] MEDS: Gabapentin 100 MG Capsule PO ×2 (14:32→20:59)
--- NOTE | 2024-03-27 14:50 | CASEMGMT ---
BERNADETTE MCELROY Assessment: Face to Face with pt for initial transition planning/care coordination assessment. BERNADETTE MCELROY introduced self and role at [facility], pt voices understanding and consents to assessment. Pt is A&O x4 and answers all questions appropriately at this time. Pt sitting up in bed in no distress. Care providers, pharmacy, and demographics verified/updated. Admitting Dx: intractable N/V Strata Score: 3 PCP:Meron Specialists: Evelyn onc; celina Santos onc; Preferred Pharmacy: [facility] Insurance: [place] Prescription Benefit: yes LNOK: Austin Rivers, ; Domi Dyer, sister Living Arrangements: Pt lives with in a mobile home with 2 steps to enter. Pt reports she is I in ADLs and assists with IADLs. Pt denies concerns at home. Transportation: Pt drives self and denies concerns with transportation. DME:Denies, states she holds onto her when she walks HHC/SNF: Has had HHC in the past in [place], denies SNF stays. Pt states no concerns with going home at time of dc. Pt nurse made BERNADETTE MCELROY aware that pt has a rx for Adderall at [facility] and they do not have in stock and it will be some time until. Pt is agreeable to BERNADETTE MCELROY requesting trf of this rx to another pharmacy if they have it in stock. Pt states she is fine with trying [facility] or [facility]. BERNADETTE MCELROY to work on this. Pt states no further concerns/needs. CM to follow. Advised pt to ask CM if any further question/concerns/needs arise, voices understanding. Pt Goal: Home Plan: Home Whit FLEMING CM
[2024-03-27] MEDS: 0.9% Saline Lock 10 ML Syringe IV (20:59)
[2024-03-27] MEDS: Atorvastatin Calcium 20 MG Tablet PO (20:59)
[2024-03-27] MEDS: MELATONIN 3 MG TABLET PO (20:59)
[2024-03-27] MEDS: Pramipexole Di-HCl 0.5 MG Tablet PO (20:59)
[2024-03-27] MEDS: ALPRAZolam 0.5 MG Tablet PO (21:04)
[2024-03-28] VITALS (7 sets, daily range): BP systolic 133–143; BP diastolic 70–86; PULSE 90–103; RESP 15–17; TEMP 37.2–37.6; O2SAT 94–100
[2024-03-28] MEDS: Gabapentin 100 MG Capsule PO ×3 (06:15→20:50)
[2024-03-28] MEDS: busPIRone 5 MG Tablet PO ×2 (06:55→15:01)
[2024-03-28 07:13] LABS: Absolute Neutrophil Count 3.4 X10^3/uL (2.0-7.7); Eosinophil# 0.02 X10^3/uL; Eosinophils% 0.4 % (0-5); Hematocrit 20.8 % (37-47); Lymphocyte % 6.4 % (19-41); Mean Corp Hgb Conc 33.7 g/dL (32-36); Mean Corpuscular Hgb 31.1 pg (27.0-32.0); Mean Corpuscular Volume 92.4 fL (81-99); Mean Platelet Vol. 10.6 fl (6.2-12.0); Monocyte# 0.92 X10^3/uL; Monocyte% 19.6 % (0-10); NRBC Flagged by Analyzer 0 % (0-5); Neutrophil # 3.42 X10^3/uL (2.7-7.7); POSITIVE DIFFERENTIAL YES; Platelet Count 134 K/mm3 (150-450); RBC Distribution Width CV 16.1 % (11.6-14.6); RBC Distribution Width SD 53.1 fl (35.1-43.9); Red Blood Count 2.25 M/mm3 (4.2-5.4); White Blood Count 4.7 K/mm3 (4.4-11.0)
[2024-03-28 07:49] LABS: Anion Gap 6 (5-15); BUN 6 mg/dL (7-18); BUN/Creat Ratio 12.6 RATIO (10-20); Calcium,Total 8.2 mg/dL (8.5-10.1); Chloride 106 mmol/L (98-107); Creatinine, Serum 0.48 mg/dL (0.55-1.02); EST Glomerular Filtration Rate 142 mL/min (>60); Est Glom Filt Rate - Afr Amer 172 mL/min (>60); Estimated Creatinine Clearance 99.81 ml/min; Glucose 90 mg/dL (74-106); Potassium 3.3 mmol/L (3.5-5.1); Sodium Level 135 mmol/L (136-145)
--- NOTE | 2024-03-28 08:25 | PN.HOSP_ITS ---
Reason for Visit Reason for Visit: Diagnoses Nausea with vomiting, unspecified (03/26/24) Subjective Subjective Breathing better. Anxious to go home. Objective Data Objective Data Vital Signs: Vital Signs Temp Pulse Resp BP Pulse Ox O2 Del Method 37.6 C H 93 17 133/70 H 94 Room Air 03/28/24 03:00 03/28/24 03:00 03/28/24 03:00 03/28/24 03:00 03/28/24 07:18 03/28/24 07:18 Oxygen Delivery Method Room Air Weight: 60 kg Body Mass Index (BMI) 24.2 Intake & Output: Intake and Output for Last 24 Hours 03/26/24 03/27/24 03/28/24 23:59 23:59 23:59 Intake Total 2905 / 2905 3270 / 3270 320 / 320 Output Total 700 / 700 Balance 2905 / 2905 2570 / 2570 320 / 320 Lab / Micro Data 03/28/24 06:04 03/28/24 06:04 Labs: Laboratory Results - last 24 hr 03/26/24 13:41: Diff Path Review Reviewed 03/28/24 06:04: WBC 4.7, RBC 2.25 L, Hgb 7.0 L, Hct 20.8 L, MCV 92.4, MCH 31.1, MCHC 33.7, RDW Std Deviation 53.1 H, RDW Coeff of Citlaly 16.1 H, Plt Count 134 L, MPV 10.6, Immature Gran % (Auto) 0.600, Neut % (Auto) 73.0 H, Lymph % (Auto) 6.4 L, [place] % (Auto) 19.6 H, Eos % (Auto) 0.4, Baso % (Auto) 0.0, Absolute Neuts (auto) 3.4, Absolute Lymphs (auto) 0.30 L, Nucleated RBC % 0, Sodium 135 L, P otassium 3.3 L, Chloride 106, Carbon Dioxide 23.0, Anion Gap 6, BUN 6 L, C reatinine 0.48 L, Estim Creat Clear Calc 99.81, Est GFR (MDRD) Af Amer 172, Est GFR (MDRD) Non-Af 142, BUN/Creatinine Ratio 12.6, Glucose 90, Calcium 8.2 L Micro: Microbiology 03/27/24 10:55 Stool Enteric Bacteriology - Final 03/27/24 10:55 Stool Clostridioides difficile (PCR) - Final 03/26/24 Unknown Urine, Clean Catch Urine Culture - Final Mixed Gram Positive Organisms 03/27/24 03:30 Nasal Secretion MRSA (PCR) - Final 03/27/24 03:30 Nasal Secretion SARS-CoV-2 Antigen (Rapid) - Final 03/26/24 23:35 Mucosa - Nasopharyngeal Respiratory Panel (PCR) - Final 03/26/24 14:27 Urine, Clean Catch Legionella Antigen - Final 03/26/24 14:27 Urine, Clean Catch Streptococcus pneumoniae Antigen (M - Final 03/26/24 18:30 Stool Stool Occult Blood (PUSHPA) - Final 03/26/24 14:15 Mucosa - Nose SARS-CoV-2, Influenza & RSV (PCR) - Final Physical Exam Const alert and no apparent distress HEENT head/scalp atraumatic and moist oral mucous membranes Resp normal respiratory effort, no retractions, no use of accessory muscles and clear to auscultation bilaterally Cardio regular rate, regular rhythm, S1 normal heart sound and S2 normal heart sound GI normal to inspection, nondistended, normoactive bowel sounds, soft to palpation, non-tender and non-distended Neuro Sensorium / Orientation: awake and alert Assessment & Plan Assessment/Plan (1) Nausea & vomiting: PLAN: Plan Acute enteritis * supportive mgmt. * enteric panel negative. Cdiff negative. Suspected pneumococcal pneumonia * RUL infiltrate. Could be postobstructive as patient does have a right upper lobe mass and this infiltrate appears to be worse from December. * Antibiotics with levofloxacin * Follow-up pneumonia studies. * Pulmonary toilet. Mucinex. * Strep and Legionella antigens negative, respiratory panel negative, COVID-19, influenza and RSV negative Anemia * Hemoglobin 6.9 upon admission. Had previously been 13 back in December. Patient was transfused 1 unit and is currently 7.6. Normocytic parameters * Will monitor at this time. * Stool occult blood negative * This may be chemo induced Hypomagnesemia/hypokalemia * Replaced. Follow-up pending. * Suspect secondary to poor p.o. and diarrhea Right sided lung cancer * Unclear type. Patient follows with Dr. Page.-S/p chemo and radiation last chemo 3 weeks ago-Will be initiated on immunotherapy per patient VTE prophylaxis with enoxaparin Disposition: Plan to monitor the patient overnight and potential discharge in 1 to 2 days. Charges/Coding Visit Charges Inpatient E&M: 40238 Subs Hosp L2
[2024-03-28] MEDS: levoFLOXacin IV 750 MG/150 ML BAG 100 MG IV (10:48)
[2024-03-28] MEDS: guaiFENesin 1,200 MG Tablet 1200 MG PO ×2 (10:50→20:51)
[2024-03-28] MEDS: DULoxetine Hcl 60 MG Capsule PO (10:51)
[2024-03-28] MEDS: Carvedilol 3.125 MG TABLET PO ×2 (10:51→20:50)
[2024-03-28] MEDS: 0.9% Saline Lock 10 ML Syringe IV (10:57)
[2024-03-28] MEDS: Ondansetron 4 MG/2 ML Vial IV (10:57)
[2024-03-28] MEDS: Ipratropium/Albuterol Sulfate 3 ML AMPUL.NEB INHALATION ×2 (12:29→19:10)
--- NOTE | 2024-03-28 12:57 | CASEMGMT ---
TC to [facility], they do not have the adderall in stock. TC to [facility], they do have the med in stock. The med cannot be trf'd as it is a controlled substance. TC to Dr. Owens's office [phone], spoke with Brenda, she states to have the pharmacy call her and she will walk the phone down to Dr. Owens as he likes to talk to the pharmacist himself. TC back to [facility], they state the med has to be e scripted or on paper as they can not take a verbal order or faxed order. TC back to Brenda, she is aware of this. Provided her with the phone number to [facility]. Updated pt with this information, she states that she already called the office and asked them to send it to [facility] but thinks [facility] will be better. She states she will call 's office back to make aware to continue with [facility] as it is closer for her .
[2024-03-28] MEDS: Pramipexole Di-HCl 0.5 MG Tablet PO (20:49)
[2024-03-28] MEDS: Atorvastatin Calcium 20 MG Tablet PO (20:50)
[2024-03-28] MEDS: ALPRAZolam 0.5 MG Tablet PO (20:58)
[2024-03-29 04:00] VITALS: BP 134/80; PULSE 96; RESP 15; TEMP 36.6; O2SAT 93; O2SAT 94
[2024-03-29 06:37] LABS: Absolute Lymphocyte Count 0.32 X10^3/uL (0.83-4.51); Absolute Neutrophil Count 1.8 X10^3/uL (2.0-7.7); Basophil# 0.01 X10^3/uL; Basophil% 0.3 % (0-1); Eosinophil# 0.01 X10^3/uL; Eosinophils% 0.3 % (0-5); Hematocrit 21.3 % (37-47); Hemoglobin 7.3 g/dL (12.0-15.0); Lymphocyte # 0.32 X10^3/ul (0.83-4.51); Lymphocyte % 10.4 % (19-41); Mean Corp Hgb Conc 34.3 g/dL (32-36); Mean Corpuscular Hgb 31.1 pg (27.0-32.0); Mean Corpuscular Volume 90.6 fL (81-99); Mean Platelet Vol. 9.5 fl (6.2-12.0); Monocyte# 0.98 X10^3/uL; Monocyte% 31.7 % (0-10); NRBC Flagged by Analyzer 0 % (0-5); Neutrophil # 1.75 X10^3/uL (2.7-7.7); Neutrophil % 56.7 % (47-70); POSITIVE DIFFERENTIAL YES; Platelet Count 133 K/mm3 (150-450); RBC Distribution Width CV 15.8 % (11.6-14.6); RBC Distribution Width SD 50.3 fl (35.1-43.9); Red Blood Count 2.35 M/mm3 (4.2-5.4); White Blood Count 3.1 K/mm3 (4.4-11.0)
[2024-03-29 07:01] LABS: Anion Gap 6 (5-15); BUN 4 mg/dL (7-18); BUN/Creat Ratio 7.7 RATIO (10-20); Calcium,Total 8.4 mg/dL (8.5-10.1); Chloride 106 mmol/L (98-107); Creatinine, Serum 0.52 mg/dL (0.55-1.02); EST Glomerular Filtration Rate 129 mL/min (>60); Est Glom Filt Rate - Afr Amer 156 mL/min (>60); Estimated Creatinine Clearance 92.13 ml/min; Glucose 92 mg/dL (74-106); Potassium 3.3 mmol/L (3.5-5.1); Sodium Level 136 mmol/L (136-145)
--- NOTE | 2024-03-29 08:20 | PN.HOSP_ITS ---
Reason for Visit Reason for Visit: Diagnoses Nausea with vomiting, unspecified (03/26/24) Subjective Subjective Feeling well. Not coughing up so much phlegm. Objective Data Objective Data Vital Signs: Vital Signs Temp Pulse Resp BP Pulse Ox O2 Del Method 36.6 C 96 15 134/80 H 94 Room Air 03/29/24 04:00 03/29/24 04:00 03/29/24 04:00 03/29/24 04:00 03/29/24 04:00 03/29/24 04:00 Oxygen Delivery Method Room Air Weight: 60 kg Body Mass Index (BMI) 24.2 Intake & Output: Intake and Output for Last 24 Hours 03/27/24 03/28/24 03/29/24 23:59 23:59 23:59 Intake Total 3270 / 3270 470 / 470 Output Total 700 / 700 400 / 400 Balance 2570 / 2570 70 / 70 Lab / Micro Data 03/29/24 06:20 03/29/24 06:20 Labs: Laboratory Results - last 24 hr 03/29/24 06:20: WBC 3.1 L, RBC 2.35 L, Hgb 7.3 L, Hct 21.3 L, MCV 90.6, MCH 31.1, MCHC 34.3, RDW Std Deviation 50.3 H, RDW Coeff of Citlaly 15.8 H, Plt Count 133 L, MPV 9.5, Immature Gran % (Auto) 0.600, Neut % (Auto) 56.7, Lymph % (Auto) 10.4 L, [place] % (Auto) 31.7 H, Eos % (Auto) 0.3, Baso % (Auto) 0.3, Absolute Neuts (auto) 1.8 L, Absolute Lymphs (auto) 0.32 L, Nucleated RBC % 0, Sodium 136, Potassium 3.3 L, Chloride 106, Carbon Dioxide 24.0, Anion Gap 6, BUN 4 L, C reatinine 0.52 L, Estim Creat Clear Calc 92.13, Est GFR (MDRD) Af Amer 156, Est GFR (MDRD) Non-Af 129, BUN/Creatinine Ratio 7.7 L, Glucose 92, Calcium 8.4 L Micro: Microbiology 03/28/24 10:42 Sputum, Expectorated/Coughed Gram Stain - Final 03/26/24 14:10 Blood Culture (Wb) - Anticubital Left Blood Culture - Preliminary No growth in 48 hours. 03/27/24 10:55 Stool Enteric Bacteriology - Final 03/27/24 10:55 Stool Clostridioides difficile (PCR) - Final 03/26/24 Unknown Urine, Clean Catch Urine Culture - Final Mixed Gram Positive Organisms 03/27/24 03:30 Nasal Secretion MRSA (PCR) - Final 03/27/24 03:30 Nasal Secretion SARS-CoV-2 Antigen (Rapid) - Final 03/26/24 23:35 Mucosa - Nasopharyngeal Respiratory Panel (PCR) - Final 03/26/24 14:27 Urine, Clean Catch Legionella Antigen - Final 03/26/24 14:27 Urine, Clean Catch Streptococcus pneumoniae Antigen (M - Final 03/26/24 18:30 Stool Stool Occult Blood (PUSHPA) - Final 03/26/24 14:15 Mucosa - Nose SARS-CoV-2, Influenza & RSV (PCR) - Final Physical Exam Const alert and no apparent distress HEENT head/scalp atraumatic and moist oral mucous membranes Resp normal respiratory effort, no retractions, no use of accessory muscles and clear to auscultation bilaterally Cardio regular rate, regular rhythm, S1 normal heart sound and S2 normal heart sound GI normal to inspection, nondistended, normoactive bowel sounds, soft to palpation, non-tender and non-distended Assessment & Plan Assessment/Plan (1) Nausea & vomiting: PLAN: Plan Acute enteritis * supportive mgmt. * enteric panel negative. Cdiff negative. Suspected pneumococcal pneumonia * RUL infiltrate. Could be postobstructive as patient does have a right upper lobe mass and this infiltrate appears to be worse from December. * Antibiotics with levofloxacin * Follow-up pneumonia studies. * Pulmonary toilet. Mucinex. * Strep and Legionella antigens negative, respiratory panel negative, COVID-19, influenza and RSV negative * Patient had amatory pulse ox and was unremarkable. Patient will not require oxygen. Complete a 7-day course of levofloxacin. Anemia * Hemoglobin 6.9 upon admission. Had previously been 13 back in December. Patient was transfused 1 unit and is currently 7.6. Normocytic parameters * Will monitor at this time. * Stool occult blood negative * This may be chemo induced Hypomagnesemia/hypokalemia * Replaced. Follow-up pending. * Suspect secondary to poor p.o. and diarrhea Right sided lung cancer * Unclear type. Patient follows with Dr. Page.-S/p chemo and radiation last chemo 3 weeks ago-Will be initiated on immunotherapy per patient VTE prophylaxis with enoxaparin Disposition: Discharge home
[2024-03-29] MEDS: Potassium Chloride Oral Tablet 20 MEQ 60 MEQ PO (09:33)
[2024-03-29] MEDS: guaiFENesin 1,200 MG Tablet 1200 MG PO (09:33)
[2024-03-29] MEDS: Carvedilol 3.125 MG TABLET PO (09:33)
[2024-03-29] MEDS: DULoxetine Hcl 60 MG Capsule PO (09:33)
[2024-03-29 09:38] VITALS: O2SAT 95; O2SAT 97
[2024-03-29 09:39] VITALS: BP 140/80; PULSE 90; RESP 18; TEMP 37; O2SAT 97
--- NOTE | 2024-03-29 14:40 | DS.PCM_ITS ---
Providers Date of Admission: 03/26/24 Primary Care Physician: Dr. Yanet Chance MD Reason For Visit: INTRACTABLE N/V Diagnosis Discharge Diagnosis (1) Nausea & vomiting: Status: Acute Code(s): R11.2 - Nausea with vomiting, unspecified Plan Acute enteritis * supportive mgmt. * enteric panel negative. Cdiff negative. Suspected pneumococcal pneumonia * RUL infiltrate. Could be postobstructive as patient does have a right upper lobe mass and this infiltrate appears to be worse from December. * Antibiotics with levofloxacin * Follow-up pneumonia studies. * Pulmonary toilet. Mucinex. * Strep and Legionella antigens negative, respiratory panel negative, COVID-19, influenza and RSV negative * Patient had amatory pulse ox and was unremarkable. Patient will not require oxygen. Complete a 7-day course of levofloxacin. Anemia * Hemoglobin 6.9 upon admission. Had previously been 13 back in December. Patient was transfused 1 unit and is currently 7.6. Normocytic parameters * Will monitor at this time. * Stool occult blood negative * This may be chemo induced Hypomagnesemia/hypokalemia * Replaced. Follow-up pending. * Suspect secondary to poor p.o. and diarrhea Right sided lung cancer * Unclear type. Patient follows with Dr. Page.-S/p chemo and radiation last chemo 3 weeks ago-Will be initiated on immunotherapy per patient VTE prophylaxis with enoxaparin Disposition: Discharge home Medications at Discharge Home Medications carvedilol 12.5 mg tablet 12.5 mg PO BID 11/28/20 ropinirole 1 mg tablet 1 mg PO QHS 11/28/20 dextroamphetamine-amphetamine ER 20 mg 24hr capsule,extend release 1 cap PO DAILY 12/17/21 alprazolam 0.5 mg tablet 0.5 mg PO BID PRN PRN Anxiety 09/13/22 gabapentin 100 mg capsule 50 mg PO TID 09/13/22 lisinopril 20 mg-hydrochlorothiazide 12.5 mg tablet 1 tab PO DAILY #30 tabs 09/13/22 naproxen 500 mg tablet 500 mg PO BID PRN PRN Pain 09/13/22 albuterol sulfate 90 mcg/actuation aerosol inhaler 2 puff inhalation Q4H PRN PRN shortness of breath or wheezing 03/16/24 buspirone 5 mg tablet 5 mg PO TID 03/16/24 rosuvastatin 10 mg tablet 10 mg PO DAILY 03/16/24 duloxetine 60 mg capsule,delayed release 60 mg PO DAILY 03/26/24 folic acid 1 mg tablet 1 mg PO DAILY 03/26/24 guaifenesin 1,200 mg tablet, extended release 12 hr (Mucus Relief ER) 1,200 mg PO BID #10 tabs 03/29/24 levofloxacin 750 mg tablet 750 mg PO DAILY #4 tabs 03/29/24 Hospital Course Operations None Procedures None Summary of Care Provided Minutes Spent on Discharge: 32 Hospital Course: Patient presented with intractable nausea and vomiting. Patient was found to have fluid-filled loops of small bowel which may represent enteritis. Chest x- ray showed right upper lobe pneumonia, this is worse than previous x-rays patient does have known lung cancer. Patient was started on levofloxacin and overall her status is improved. Patient has not been hypoxic and overall doing well. Patient will be discharged to home today to complete a course of antibiotics with levofloxacin. Weight / BMI Weight Weight: 60 kg Body Mass Index (BMI) 24.2 ABG / Lab / Microbiology Data 03/29/24 06:20 03/29/24 06:20 Laboratory: Laboratory Results - last 24 hr 03/29/24 06:20: WBC 3.1 L, RBC 2.35 L, Hgb 7.3 L, Hct 21.3 L, MCV 90.6, MCH 31.1, MCHC 34.3, RDW Std Deviation 50.3 H, RDW Coeff of Citlaly 15.8 H, Plt Count 133 L, MPV 9.5, Immature Gran % (Auto) 0.600, Neut % (Auto) 56.7, Lymph % (Auto) 10.4 L, [place] % (Auto) 31.7 H, Eos % (Auto) 0.3, Baso % (Auto) 0.3, Absolute Neuts (auto) 1.8 L, Absolute Lymphs (auto) 0.32 L, Nucleated RBC % 0, Sodium 136, Potassium 3.3 L, Chloride 106, Carbon Dioxide 24.0, Anion Gap 6, BUN 4 L, C reatinine 0.52 L, Estim Creat Clear Calc 92.13, Est GFR (MDRD) Af Amer 156, Est GFR (MDRD) Non-Af 129, BUN/Creatinine Ratio 7.7 L, Glucose 92, Calcium 8.4 L Microbiology: Microbiology 03/28/24 10:42 Sputum, Expectorated/Coughed Gram Stain - Final 03/26/24 14:10 Blood Culture (Wb) - Anticubital Left Blood Culture - Preliminary No growth in 48 hours. 03/27/24 10:55 Stool Enteric Bacteriology - Final 03/27/24 10:55 Stool Clostridioides difficile (PCR) - Final 03/26/24 Unknown Urine, Clean Catch Urine Culture - Final Mixed Gram Positive Organisms 03/27/24 03:30 Nasal Secretion MRSA (PCR) - Final 03/27/24 03:30 Nasal Secretion SARS-CoV-2 Antigen (Rapid) - Final 03/26/24 23:35 Mucosa - Nasopharyngeal Respiratory Panel (PCR) - Final 03/26/24 14:27 Urine, Clean Catch Legionella Antigen - Final 03/26/24 14:27 Urine, Clean Catch Streptococcus pneumoniae Antigen (M - Final 03/26/24 18:30 Stool Stool Occult Blood (PUSHPA) - Final 03/26/24 14:15 Mucosa - Nose SARS-CoV-2, Influenza & RSV (PCR) - Final D/C Instructions Discharge Diet: No restrictions Meaningful Use Info Meaningful Use Meaningful Use Diagnoses (Choose all that apply): None applicable Ischemic Stroke Statin Dosing Therapy Reference: STATIN DOSE THERAPY REFERENCE: * Patients > 75 years receive moderate or high dose statin therapy. * Patients 75 years or YOUNGER should receive HIGH intensity statin dose unless contraindicated. You will be required to document reason for non-treatment if statin daily dose does not meet guidelines. HIGH DOSE STATIN THERAPY DAILY Atorvastatin > than or = to 40 mg Rosuvastatin > than or = to 20 mg Amlodipine + Atorvastatin > than or = to 2.5/40 mg Ezetimibe + Simvastatin 10/80 mg Simvastatin 80mg Discharge Plan Admission Admit Date/Time: 03/26/24 19:15 Primary Reason for Your Visit: pneumonia Attending Provider: Yves Plummer Primary Care Provider: Yanet Chance Consulting Providers: Barbara Butcher Discharge Orders/Prescriptions Prescriptions: New guaifenesin [Mucus Relief ER] 1,200 mg Tablet Extended Release 12hr 1,200 mg PO BID Qty: 10 0RF levofloxacin 750 mg tablet 750 mg PO DAILY Qty: 4 0RF Continued carvedilol 12.5 mg Tablet 12.5 mg PO BID ropinirole 1 mg Tablet 1 mg PO QHS dextroamphetamine-amphetamine 20 mg capsule,extended release 24hr 1 cap PO DAILY Patient Comments: TAKE 1 CAPSULE BY MOUTH ONCE DAILY IN THE MORNING alprazolam 0.5 mg tablet 0.5 mg PO BID PRN PRN (Reason: Anxiety) gabapentin 100 mg capsule 50 mg PO TID Patient Comments: Take 1 capsule by mouth three times daily for 90 days. naproxen 500 mg tablet 500 mg PO BID PRN PRN (Reason: Pain) lisinopril-hydrochlorothiazide 20-12.5 mg tablet 1 tab PO DAILY Qty: 30 0RF buspirone 5 mg tablet 5 mg PO TID rosuvastatin 10 mg tablet 10 mg PO DAILY albuterol sulfate 90 mcg/actuation HFA aerosol inhaler 2 puff inhalation Q4H PRN PRN (Reason: shortness of breath or wheezing) folic acid 1 mg tablet 1 mg PO DAILY duloxetine 60 mg capsule,delayed release(DR/EC) 60 mg PO DAILY Referrals / Follow Up: Yanet Chance MD [Primary Care Provider] - Within 2 Weeks Disposition Disposition (needs filled in before D/C Order can be placed): Home, Self Care Charges/Coding Visit Charges Inpatient E&M: 22768 Disch Hosp >30min
[2024-03-29] MEDS: busPIRone 5 MG Tablet PO (15:10)
[2024-03-29] MEDS: Gabapentin 100 MG Capsule PO (15:10)
[2024-03-29 15:14] VITALS: BP 129/74; PULSE 64; RESP 16; TEMP 37.2; O2SAT 98
== END 2024-03-29 17:05 | disposition home or self-care (01) | DRG 391 ==
LOC: ED 14:13 → MS3 20:03
PROVIDERS: Admitting Provider Internal Medicine; Emergency Provider Emergency Medicine; PCP Internal Medicine
DX: K52.9 Noninfective gastroenteritis and colitis, unspecified (principal); J13 Pneumonia due to Streptococcus pneumoniae; C34.91 Malignant neoplasm of unspecified part of right bronchus or lung; D64.9 Anemia, unspecified; E78.5 Hyperlipidemia, unspecified; E83.42 Hypomagnesemia; I10 Essential (primary) hypertension; E87.6 Hypokalemia; Z87.891 Personal history of nicotine dependence; Z85.3 Personal history of malignant neoplasm of breast; Z98.51 Tubal ligation status; Z90.49 Acquired absence of other specified parts of digestive tract
CPT/HCPCS: 36415; 71046; 74177; 80048; 80053; 81001; 82274; 82728; 83550; 83605; 83735; 84100; 84443; 84484; 85025; 85610; 85730; 86850; 86900; 86901; 86920; 86922; 87040; 87070; 87086; 87088; 87205; 87426; 87449; 87493; 87506; 87631; 87633; 87641; 93005; 94640; 94668; 99285; J7030; J7040; P9016; Q9967; A4216; J2405

== ENCOUNTER 2024-04-17 11:57 | Emergency (ER) | payer BC, SELFPAY ==
[2024-04-17 11:59] VITALS: BP 116/69; PULSE 86; RESP 16; TEMP 36.8; O2SAT 100; BMI 23.3
[2024-04-17 12:56] VITALS: BP 115/68; PULSE 82; RESP 18; O2SAT 97
[2024-04-17] MEDS: Famotidine 20 MG Tablet 40 MG PO (13:26)
[2024-04-17] MEDS: DiphenhydrAMINE 25 MG Capsule PO (13:26)
--- NOTE | 2024-04-17 13:52 | EX.ED.DYSGE1 ---
HPI History of Present Illness Chief Complaint: Allergic Reaction Informant: patient and spouse/S.O. Narrative Narrative: 59-year-old female currently undergoing immunotherapy she states for lung cancer. In speaking with her oncologist she is taking Keytruda. Patient states that at 4:00 this morning she woke and noted some swelling on the left lower face near her upper lip. This progressed across the upper lip and has not been progressing since. She denies any difficulty swallowing speaking or breathing. She is never had this reaction before. The patient is currently on lisinopril for hypertension. [facility] Medical History MCTD (mixed connective tissue disease) Breast cancer Anxiety Hyperlipemia HTN (hypertension) Home Medications ?Medication ?Instructions ?Recorded ?Last Taken ?Type carvedilol 12.5 mg tablet 12.5 mg PO BID 11/28/20 Unknown History ropinirole 1 mg tablet 1 mg PO QHS 11/28/20 Unknown History dextroamphetamine-amphetamine ER 1 cap PO DAILY 12/17/21 Unknown History 20 mg 24hr capsule,extend release alprazolam 0.5 mg tablet 0.5 mg PO BID PRN PRN Anxiety 09/13/22 Unknown History gabapentin 100 mg capsule 50 mg PO TID 09/13/22 Unknown History lisinopril 20 1 tab PO DAILY #30 tabs 09/13/22 Unknown Rx mg-hydrochlorothiazide 12.5 mg tablet naproxen 500 mg tablet 500 mg PO BID PRN PRN Pain 09/13/22 Unknown History albuterol sulfate 90 mcg/actuation 2 puff inhalation Q4H PRN PRN 03/16/24 Unknown History aerosol inhaler shortness of breath or wheezing buspirone 5 mg tablet 5 mg PO TID 03/16/24 Unknown History rosuvastatin 10 mg tablet 10 mg PO DAILY 03/16/24 Unknown History duloxetine 60 mg capsule,delayed 60 mg PO DAILY 03/26/24 Unknown History release folic acid 1 mg tablet 1 mg PO DAILY 03/26/24 Unknown History guaifenesin 1,200 mg tablet, 1,200 mg PO BID #10 tabs 03/29/24 Unknown Rx extended release 12 hr (Mucus Relief ER) levofloxacin 750 mg tablet 750 mg PO DAILY #4 tabs 03/29/24 Unknown Rx Allergy/AdvReac Type Severity Reaction Status Date / Time No Known Allergies Allergy Verified 04/17/24 11:59 Surgical History History of tubal ligation History of cholecystectomy Status post ORIF of fracture of ankle History of bilateral mastectomy Social History household members: spouse Smoking Status: Former smoker ROS ROS ED Constitutional Constitutional ED: Denies chills or weight loss Eyes Eyes: Denies change in vision or diplopia ENT ENT ED: Reports other Details: See history of present illness ; Denies ear pain, rhinorrhea or sore throat Cardiovascular Cardiovascular: Denies chest pain, orthopnea, palpitations or racing heartbeat Respiratory/Chest Respiratory/Chest: Reports cough; Denies dyspnea or orthopnea Gastrointestinal Gastrointestinal: Denies abdominal pain, diarrhea, nausea or vomiting Genitourinary Genitourinary ED: Denies dysuria, hematuria or urinary frequency Musculoskeletal Musculoskeletal: Denies arthralgias or myalgias Integumentary Denies abscess or rash Neurologic Neurologic: Denies headache(s) or weakness Psychiatric Psychiatric: Denies anxiety, depression, suicidal ideation or suicidal thoughts Endocrine Endocrinology: Denies polydipsia, polyphagia or polyuria Allergic/Immunologic Allergic/Immunologic ED: Denies mouth swelling, tongue swelling or urticaria EXAM Physical Exam Const Vital Signs: 04/17/24 11:59 04/17/24 12:56 04/17/24 14:00 Temperature 98.3 F Temperature Source Oral Pulse Rate 86 82 77 Respiratory Rate 16 18 18 Blood Pressure 116/69 115/68 109/83 H Blood Pressure Mean 84 83 91 Pulse Ox 100 97 98 Oxygen Delivery Method Room Air Room Air Room Air 04/17/24 15:00 Temperature Temperature Source Pulse Rate Respiratory Rate Blood Pressure 125/54 H Blood Pressure Mean 72 Pulse Ox 97 Oxygen Delivery Method Positive well nourished and well developed General Appearance ED: well developed HEENT Reports normocephalic, head/scalp atraumatic and moist mucous membranes HEENT Narrative: There is swelling of the upper lip. There is no lower lip swelling. There is no tongue swelling. No uvular swelling. There is no stridor or difficulty handling secretions Eyes PERRL and EOMs intact bilaterally Neck no lymphadenopathy, supple and no JVD Resp normal respiratory effort and clear to auscultation bilaterally Cardio regular rate, regular rhythm and no murmurs GI normal to inspection, nondistended, normoactive bowel sounds and non-tender Palpation: soft Back/Spine no CVA tenderness and normal ROM Extremity normal to inspection General Extremety ED: Negative for edema General Extremity: Negative for edema Neuro oriented x3 and CN's II-XII intact bilaterally Sensorium / Orientation: alert Motor Exam: strength 5/5 throughout Psych mental status grossly normal Mood & Affect: Negative for depressed or tearful Skin no rashes or lesions noted and no wounds MDM MDM MDM Narrative Medical decision making narrative: Differential diagnosis includes but not limited to angioedema dental abscess facial abscess Patient received Benadryl Pepcid and prednisone. She was observed here in the department. During which time I spoke with Dr. Rivas she notes that the patient is on Keytruda. He did not feel strongly that this was a likely culprit is most likely lisinopril induced. Patient has not progressed in fact she feels that her swelling is gotten better. Will have her discontinue her lisinopril follow-up with primary care to discuss other options for blood pressure management. Patient will continue Benadryl/Pepcid at home. Patient understands return instructions History & Record Review Discussion w/independent historian: Patient and Significant other Management Discussion w/another healthcare provider: Elevator Installer Apprentice (Dr. Rivas) Discharge Plan Triage Chief Complaint: Allergic Reaction ED Provider: Michael Alvarez Dx/Rx/DC Orders Clinical Impression: Angioedema Instructions: ED Angioedema Prescriptions: No Action carvedilol 12.5 mg Tablet 12.5 mg PO BID ropinirole 1 mg Tablet 1 mg PO QHS dextroamphetamine-amphetamine 20 mg capsule,extended release 24hr 1 cap PO DAILY Patient Comments: TAKE 1 CAPSULE BY MOUTH ONCE DAILY IN THE MORNING alprazolam 0.5 mg tablet 0.5 mg PO BID PRN PRN (Reason: Anxiety) gabapentin 100 mg capsule 50 mg PO TID Patient Comments: Take 1 capsule by mouth three times daily for 90 days. naproxen 500 mg tablet 500 mg PO BID PRN PRN (Reason: Pain) lisinopril-hydrochlorothiazide 20-12.5 mg tablet 1 tab PO DAILY Qty: 30 0RF buspirone 5 mg tablet 5 mg PO TID rosuvastatin 10 mg tablet 10 mg PO DAILY albuterol sulfate 90 mcg/actuation HFA aerosol inhaler 2 puff inhalation Q4H PRN PRN (Reason: shortness of breath or wheezing) folic acid 1 mg tablet 1 mg PO DAILY duloxetine 60 mg capsule,delayed release(DR/EC) 60 mg PO DAILY guaifenesin [Mucus Relief ER] 1,200 mg Tablet Extended Release 12hr 1,200 mg PO BID Qty: 10 0RF levofloxacin 750 mg tablet 750 mg PO DAILY Qty: 4 0RF Primary Care Provider: Yanet Chance Referrals: Yanet Chance MD [Primary Care Provider] - As soon as possible Activity Restrictions/Additional Instructions: Please discontinue your lisinopril. I strongly recommend you schedule follow-up with your primary care doctor discuss your symptoms today and your blood pressure medications. Please return to the emergency department if any signs of worsening of the swelling of the lip or tongue swelling or difficulty breathing Print Language: Mongolian Disposition Disposition: Home, Self Care
[2024-04-17 14:00] VITALS: BP 109/83; PULSE 77; RESP 18; O2SAT 98
[2024-04-17] MEDS: predniSONE 20 MG Tablet 60 MG PO (14:12)
[2024-04-17 15:00] VITALS: BP 125/54; O2SAT 97
[2024-04-17 15:27] VITALS: BP 125/54; PULSE 68; RESP 16; TEMP 36.4; O2SAT 95
== END 2024-04-17 15:28 | disposition home or self-care (01) ==
PROVIDERS: Emergency Provider Emergency Medicine; PCP Internal Medicine; Visit Provider Emergency Medicine
DX: T78.3XXA Angioneurotic edema, initial encounter (principal); C34.90 Malignant neoplasm of unspecified part of unspecified bronchus or lung; I10 Essential (primary) hypertension; E78.5 Hyperlipidemia, unspecified; Z87.891 Personal history of nicotine dependence; R05.9 Cough, unspecified; Z98.51 Tubal ligation status; Z90.49 Acquired absence of other specified parts of digestive tract; Z85.3 Personal history of malignant neoplasm of breast; F41.9 Anxiety disorder, unspecified
CPT/HCPCS: 99283